=== PATIENT | female | born 1965 | race Caucasian/White ===

== ENCOUNTER → 2017-05-30 | Outpatient (CLI) | payer MEDICARE, OTHER ==
--- NOTE | 2017-05-30 20:05 | Diagnostic Imaging Report ---
PROCEDURE: US Carotid Duplex Bilateral. TECHNIQUE: Multiple real-time grayscale images were obtained over the carotid arteries in various projections bilaterally. Additional duplex Doppler and color Doppler images were also obtained. INDICATION: Coronary artery disease. FINDINGS: Grayscale images demonstrate minimal atherosclerotic plaque in the common and internal carotid arteries bilaterally. Color Doppler demonstrates patency of the internal, external and common carotid arteries on both sides. There is antegrade flow demonstrated in the vertebral arteries bilaterally. Peak systolic velocities in the right ICA are 86, 116 and 110 cm/s and on the left are 175, 107, and 119 cm/s. ICA/CCA ratios are up to 1.1 on the right side and up to 2 on the left. IMPRESSION: Despite the elevation of velocity in the proximal left internal carotid artery up to 175 cm/s, the degree of stenosis based on grayscale images appears to be less than 50%. Correlation with CTA is suggested to ensure lack of underlying significant stenosis. The estimated degree of stenosis in the right internal carotid artery is less than 50%. Dictated by: Dictated on workstation # [id number]
== END ==
LOC: RAD 12:00
PROVIDERS: ATTEND Pediatrics
DX: I25.10 Atherosclerotic heart disease of native coronary artery without angina pectoris (principal)
CPT/HCPCS: 93880

== ENCOUNTER → 2017-07-03 | Outpatient (CLI) | payer MEDICARE ==
[~2017-07-03] MED LIST: AMIT25TA9 PO; CATHETER FLUSH 10 ML SYR IV PRN; CLOP75TA28 PO; LISI-552 PO; MELO15TA39 PO; QUET25TA73 PO; REGADENOSON 0.4 MG/5 ML SYR (LEXISCAN) IV ONE; ROSU20TA28 PO; TRAM50TA2 PO
[2017-07-03 08:55] VITALS: BP 116/81
[2017-07-03 09:03] VITALS: BP 154/84
--- NOTE | 2017-07-04 10:07 | STRESS TEST ---
DATE OF SERVICE: 07/03/2017 LEXISCAN MYOVIEW STRESS TEST REPORT REFERRING PHYSICIAN: Dr. Anderson. Baseline heart rate is 65, baseline blood pressure 116/81. Baseline EKG is sinus rhythm with no ischemic changes. In summary, the patient was injected with 10.73 mCi of technetium-99 Myoview and the resting images were obtained. Then, the patient was injected with 0.4 mg of Lexiscan followed by 29.4 mCi of technetium-99 Myoview. Throughout the test, there were no EKG changes. The resting and stress images were reviewed and compared in the short axis, horizontal long axis, and vertical long axis views. Review of the images showed breast attenuation with reversible ischemia involving the mid to apical anterior wall and anterior septum, anterolateral wall. SSS is 9, SDS 1, TID value 1.0. On the gated images, the left ventricle appeared to be normal in size with normal contractility, calculated ejection fraction 62%. CONCLUSION: 1. The patient tolerated Lexiscan well. 2. Breast attenuation with reversible ischemia involving the mid to apical anterior wall, anterior septum and anterolateral wall. 3. Normal left ventricular size with normal contractility, calculated ejection fraction of 62%. Job ID: [id number] DocumentID: [id number] Dictated Date: 07/04/2017 07:16:30 Slide Fasteners Inspector Date: 07/04/2017 07:37:32 Dictated By: JAS CAMACHO MD
== END ==
LOC: CARD 06:37
PROVIDERS: ATTEND Internal Medicine Cardiovascular Disease
DX: I25.10 Atherosclerotic heart disease of native coronary artery without angina pectoris (principal); I73.9 Peripheral vascular disease, unspecified; I10 Essential (primary) hypertension; E78.2 Mixed hyperlipidemia
CPT/HCPCS: 78452; 93017

== ENCOUNTER → 2017-12-13 | Outpatient (CLI) | payer MEDICARE ==
[~2017-12-13] MED LIST changes: -CATHETER FLUSH 10 ML SYR IV PRN; -REGADENOSON 0.4 MG/5 ML SYR (LEXISCAN) IV ONE; -ROSU20TA28 PO; +ROSU20TA30 PO
--- NOTE | 2017-12-13 15:55 | Diagnostic Imaging Report ---
EXAMINATION: MRI thoracic spine without contrast. INDICATION: Back pain. COMPARISON: There are no prior studies available for comparison. FINDINGS: The parasagittal images show that the vertebral body heights and alignment to be generally within normal limits. There is desiccation of the discs at every level and mild generalized narrowing of the disc spaces. Also, at the T8-T9 level, there is a small disc bulge eccentric to the right. The disc compresses the right ventral aspect of the thecal sac and narrows the AP diameter to approximately 11 mm. There is no encroachment of the nerve root at this level. The remainder of the thoracic spine is unremarkable for spinal stenosis or nerve root encroachment. There is no abnormal signal arising from the osseous structures of the cord to suggest an acute abnormality. There is no evidence for a paraspinal mass. IMPRESSION: 1. There is a slight disc bulge to the right at T8-T9. This compresses the right ventral aspect of the thecal sac but does not produce spinal stenosis. There is no nerve root encroachment identified either. 2. The remainder of the thoracic spine is unremarkable for spinal stenosis or nerve root encroachment. 3. There is no sign of an acute bony abnormality or of a cord lesion. Dictated by: Dictated on workstation # [id number]
--- NOTE | 2017-12-13 16:02 | Diagnostic Imaging Report ---
PROCEDURE: MRI lumbar spine. TECHNIQUE: Multiplanar, multisequence MRI of the lumbar spine was performed without contrast. INDICATION: Low back pain. There are no prior studies available for comparison. FINDINGS: The T2 sagittal images show the vertebral body heights and alignment to be within normal limits. There is desiccation of the disc at every level and there is narrowing of the disc space at the L1-L2 level. At the L1-L2 level, there is a slight disc bulge eccentric to the left. The disc effaces the left ventral aspect of the thecal sac but does not produce spinal stenosis. There is no significant neuroforaminal narrowing either. The thecal sac is relatively generous. The remainder of the lumbar spine is also unremarkable for spinal stenosis or nerve root encroachment. There is no abnormal signal arising from the cord or the vertebral bodies to indicate an acute abnormality. There is no sign of a paraspinal mass. There are several parapelvic cysts associated with the right kidney and there are a few smaller cysts arising from the left kidney. IMPRESSION: 1. There is degenerative disc disease throughout the lumbar spine. The thecal sac, however, is relatively generous and there is no evidence for spinal stenosis or nerve root encroachment at any level. 2. There is no sign of an acute bony abnormality or of a cord lesion. Dictated by: Dictated on workstation # [id number]
== END ==
LOC: RAD 12:54
PROVIDERS: ATTEND Pediatrics
DX: M51.16 Intervertebral disc disorders with radiculopathy, lumbar region (principal); M51.24 Other intervertebral disc displacement, thoracic region
CPT/HCPCS: 72146; 72148

== ENCOUNTER 2018-01-29 13:44 | Outpatient (RCR) | payer MEDICARE ==
[~2018-01-29 13:44] MED LIST changes: -ROSU20TA30 PO; +ROSU20TA31 PO
== END 2018-03-19 10:55 | disposition home or self-care (01) ==
PROVIDERS: ATTEND Pediatrics
DX: M54.5 Low back pain (principal); M54.6 Pain in thoracic spine

== ENCOUNTER 2019-05-28 05:42 | Outpatient (CLI) | payer MEDICARE, MEDICAID ==
[~2019-05-28] VITALS: Ht 162 cm; Wt 83.6 kg
[~2019-05-28 05:42] MED LIST changes: -ROSU20TA31 PO; +ROSU20TA32 PO
== END 2019-05-28 14:53 | disposition home or self-care (01) ==
LOC: PREOP 05:42
PROVIDERS: ATTEND Surgery
DX: Z01.818 Encounter for other preprocedural examination (principal)

== ENCOUNTER 2019-06-03 11:57 | Day surgery (SDC) | payer MEDICARE, MEDICAID ==
[2019-06-03] VITALS (8 sets, daily range): BP systolic 126–155; BP diastolic 58–78
[~2019-06-03] VITALS: Ht 162 cm; Wt 83.6 kg
[~2019-06-03 11:57] MED LIST changes: +LACTATED RINGERS 1,000 ML IV ONE
[2019-06-03] MEDS ORDERED: LACTATED RINGERS 1,000 ML IV STA (12:04)
[2019-06-03] MEDS ORDERED: HURRICAINE EXT TUBE (BENZOCAINE) XX PRN (12:15)
--- NOTE | 2019-06-03 12:22 | Progress Note-Pre Operative ---
Pre-Operative Progress Note H&P Reviewed The H&P was reviewed, patient examined and no changes noted. Time Seen by Provider: 12:20 Date H&P Reviewed: Jun 03, 2019 Time H&P Reviewed: 12:18 Pre-Operative Diagnosis: Chronic Gastritis, Screening colonoscopy YOSELYN ELIZABETH DO Jun 03, 2019 12:22
[2019-06-03] MEDS ORDERED: MIDAZOLAM 2 MG/2 ML (VERSED) VIAL ONE (13:02)
[2019-06-03] MEDS ORDERED: PROPOFOL INJECTION 50 ML IV ONE (13:02)
--- NOTE | 2019-06-03 13:48 | Progress Note-Post Operative ---
Post-Operative Progess Note Surgeon (s)/Treating Machine Operator (s) Surgeon YOSELYN ELIZABETH DO Treating Machine Operator: none Pre-Operative Diagnosis Chronic Gastritis, Screening colonoscopy Post-Operative Diagnosis Gastritis Duodenitis Hiatal hernia colon polyp internal hemorrhoids Procedure & Operative Findings Date of Procedure 06/03/19 Procedure Performed/Findings EGD with bx Colon with snare Anesthesia Type IV sedation by COMMERCIAL PROJECT MANAGER Estimated Blood Loss Estimated blood loss (mL): scant Specimens/Packing Specimens Removed duodenal bx antral bx body of stomach bx GE jxn bx Transverse colon polyp YOSELYN ELIZABETH DO Jun 03, 2019 13:48
--- NOTE | 2019-06-03 13:50 | Endoscopy Discharge Instruct ---
Endo Procedure/Findings Findings 1.: Gastritis 2.: Polyp 3.: Internal Hemorrhoids Discharge Instructions - Activity: You might feel a little sleepy until tomorrow. This is due to the medicine you received to relax you. Until tomorrow, you should: NOT drive a car, operate machinery or power tools. NOT drink any alcoholic beverages. NOT make any important decisions or sign importortant papers. Do not return to work until tomorrow, unless otherwise instructed. Resume previous activities tomorrow. Diet: Start by taking liquids. If you tolerate liquids, advance to solid food. make an appointment in one week 1.: Colonscopy in 5 years, EGD in 1 year Notify Physician - If you experience excessive bleeding, unusual abdominal pain, fever, or chest pain, contact your doctor immediately. YOSELYN ELIZABETH DO Jun 03, 2019 13:50
--- NOTE | 2019-06-03 14:41 | Anesthesia-General Post-Op ---
MAC Patient Condition Mental Status/LOC: Same as Preop Cardiovascular: Satisfactory Nausea/Vomiting: Absent Respiratory: Satisfactory Pain: Controlled Complications: Absent Post Op Complications Complications None Follow Up Care/Instructions Patient Instructions None needed. Anesthesiology Discharge Order Discharge Order Patient is doing well, no complaints, stable vital signs, no apparent adverse anesthesia problems. No complications reported per nursing. KAROL CORTEZ CRNA Jun 03, 2019 14:41
--- NOTE | 2019-06-04 01:12 | OPERATIVE REPORT ---
DATE OF SERVICE: PREOPERATIVE DIAGNOSES: 1. Chronic gastritis. 2. Screening colonoscopy. POSTOPERATIVE DIAGNOSES: 1. Gastritis. 2. Duodenitis. 3. Hiatal hernia. 4. Colon polyp. 5. Internal hemorrhoids. PROCEDURES: 1. EGD with biopsy. 2. Colonoscopy with snare polypectomy. SURGEON: Zak Méndez DO. PHYSICS DEPARTMENT CHAIR: None. ANESTHESIA: IV sedation by the MEDIA RELATIONS MANAGER. SPECIMEN: Biopsy x2 from the duodenum, one biopsy from the antrum, one biopsy from the body of stomach, one biopsy from the GE junction and then a transverse colon polyp. BLOOD LOSS: Scant. FLUIDS: Per anesthesia. POSTOPERATIVE CONDITION: Stable. INDICATION FOR PROCEDURE: The patient is a 54-year-old female who has got some chronic gastritis and needed an EGD. She has also never had a colonoscopy, need one for screening. FINDINGS: The patient had what looked like gastritis and duodenitis. She also had a small hiatal hernia. In the colon, she had a transverse colon polyp and some internal hemorrhoids. PROCEDURE NOTE: After informed consent was obtained, the patient was brought to the endoscopy suite and placed in bed in left lateral decubitus position. She was administered IV sedation by the MEDIA RELATIONS MANAGER who then monitored her vitals the entire time, heart rate, blood pressure and pulse ox. Scope was inserted down the mouth through the esophagus into the stomach, pushed in the duodenum and the duodenal looked like there is duodenitis, may be some possible irritation or polyps, elected to do a biopsy, did 2 biopsies in the duodenum, pulled back into the antrum, did a biopsy here, also looked like there is some gastritis and then retroflexed the scope, saw a small hiatal hernia, did a biopsy of the body of stomach and then pulled the scope into the GE junction, looked like there was some creeping up of the Z line here and elected to do a biopsy here as well and suctioned this area out of the stomach and pulled the scope up the esophagus and out the mouth. Switched camera, switched gloves and went down below, started the colonoscopy. Pushed all the way to about 150 cm got into the cecum, took a picture of appendiceal orifice, noted the ileocecal valve and then slowly withdrew the scope insufflating to look circumferentially at the sainz. Startin in the cecum, up the ascending colon to the hepatic flexure, then down the transverse colon and in the transverse colon, saw small polyp, did a snare polypectomy of this. Continued to the splenic flexure, then down the descending colon into the sigmoid colon and finally down into the rectum, retroflexed in rectal vault, saw some small internal hemorrhoids, took a picture of this and removed the scope. The patient tolerated the procedure. She was recovered in endoscopy suite. Job ID: [id number] DocumentID: [id number] Dictated Date: 06/03/2019 16:56:49 Stripping Cutter And Winder Date: 06/04/2019 01:12:26 Dictated By: DO ANIA ATKINSON
== END 2019-06-03 14:40 | disposition home or self-care (01) ==
LOC: ENDO 11:57
PROVIDERS: ATTEND Surgery
DX: Z12.11 Encounter for screening for malignant neoplasm of colon (principal); D12.3 Benign neoplasm of transverse colon; K29.50 Unspecified chronic gastritis without bleeding; K20.9 Esophagitis, unspecified; K29.80 Duodenitis without bleeding; K64.8 Other hemorrhoids; K44.9 Diaphragmatic hernia without obstruction or gangrene; I25.10 Atherosclerotic heart disease of native coronary artery without angina pectoris; I70.203 Unspecified atherosclerosis of native arteries of extremities, bilateral legs; J44.9 Chronic obstructive pulmonary disease, unspecified; K21.9 Gastro-esophageal reflux disease without esophagitis; I10 Essential (primary) hypertension; I77.1 Stricture of artery; E78.5 Hyperlipidemia, unspecified; E66.9 Obesity, unspecified; F17.210 Nicotine dependence, cigarettes, uncomplicated; F32.9 Major depressive disorder, single episode, unspecified; Z68.39 Body mass index [BMI] 39.0-39.9, adult; Z98.51 Tubal ligation status; Z82.3 Family history of stroke; Z82.49 Family history of ischemic heart disease and other diseases of the circulatory system; Z80.9 Family history of malignant neoplasm, unspecified

== ENCOUNTER → 2019-07-09 | Outpatient (CLI) | payer MEDICARE, MEDICAID ==
[~2019-07-09] MED LIST changes: -LACTATED RINGERS 1,000 ML IV ONE
[2019-07-09 12:31] LABS: ABG BASE EXCESS -0.1 MMOL/L (-2.5-2.5); ABG OXYGEN SATURATION 98 % (94-100); ABG PCO2 42 MMHG (35-45); ABG PH 7.38 (7.37-7.43); ABG PO2 81 MMHG (79-93); ABG TCO2 25.8 MMOL/L (21.0-31.0); ALLENS TEST POSITIVE; PATIENT TEMP 36.2; VENTILATOR NO
--- NOTE | 2019-07-09 12:35 | Diagnostic Imaging Report ---
EXAMINATION: Chest, two views. HISTORY: Cough. FINDINGS: Comparison is 07/05/2017. There is mild atelectasis in the left lung base. No pleural effusion or pneumothorax. No edema or pneumonia. Heart size is normal. IMPRESSION: 1. Mild atelectasis in the left lung base. Dictated by: Dictated on workstation # [id number]
== END ==
LOC: RT 11:29
PROVIDERS: ATTEND Nurse Practitioner Family
DX: J44.9 Chronic obstructive pulmonary disease, unspecified (principal); J98.11 Atelectasis; G47.50 Parasomnia, unspecified; R06.83 Snoring
CPT/HCPCS: 36600; 71046; 82805

== ENCOUNTER → 2019-08-14 | Outpatient (CLI) | payer MEDICARE, MEDICAID ==
[~2019-08-14] MED LIST changes: +RT-ALBUTEROL SULF 2.5 MG/3 ML PRE-MIX VIAL INH ONE
== END ==
LOC: RT 08:09
PROVIDERS: ATTEND Nurse Practitioner Family
DX: J44.9 Chronic obstructive pulmonary disease, unspecified (principal); G47.50 Parasomnia, unspecified
CPT/HCPCS: 94060; 94726; 94729

== ENCOUNTER → 2019-08-30 | Outpatient (CLI) | payer MEDICARE, MEDICAID ==
[~2019-08-30] MED LIST changes: +CATHETER FLUSH 10 ML SYR IV PRN; +HOLD METFORMIN - RECEIVED CONTRAST 20 ML VIAL IV SCH; +IOHEXOL 350 MG/ML 100 ML (OMNIPAQUE 350) VIAL IV ONE; +NS 100 ML (IVPB) BAG IV ONE; -RT-ALBUTEROL SULF 2.5 MG/3 ML PRE-MIX VIAL INH ONE
[2019-08-30 12:13] LABS: BUN/CREATININE RATIO 11; CREATININE SERUM 0.75 MG/DL (0.60-1.30); GFR ESTIMATED > 60
--- NOTE | 2019-08-30 13:18 | Diagnostic Imaging Report ---
EXAMINATION: CT Chest with intravenous contrast. TECHNIQUE: Multiple contiguous axial images were obtained through the chest after the uneventful administration of intravenous contrast. All CT scans use one or more of the following dose optimizing techniques: automated exposure control, MA and/or KvP adjustment based on a patient size and exam type, or iterative reconstruction. HISTORY: COPD, dyspnea. COMPARISON: None available. FINDINGS: The lungs are clear without edema or pneumonia. No pleural effusion or pneumothorax. No suspicious nodules. Lungs are mildly emphysematous. There is mild atelectasis in the left lung base. Heart size is normal. Incidental note is made of fat deposition within the moderator band of the right ventricle. No pericardial effusion. Aorta is normal in caliber. There is no axillary or supraclavicular lymphadenopathy. There is no mediastinal lymphadenopathy. Limited views of the upper abdomen are unremarkable. There are no suspicious osseous lesions. IMPRESSION: 1. No acute abnormality in the chest. Dictated by: Dictated on workstation # [id number]
== END ==
LOC: RAD 11:30
PROVIDERS: ATTEND Nurse Practitioner Family
DX: J44.9 Chronic obstructive pulmonary disease, unspecified (principal); J98.4 Other disorders of lung; R91.8 Other nonspecific abnormal finding of lung field
CPT/HCPCS: 36415; 71260; 82565; 84520

== ENCOUNTER → 2019-09-16 | Outpatient (CLI) | payer MEDICARE, MEDICAID ==
[~2019-09-16] VITALS: Ht 162 cm; Wt 85.0 kg
[~2019-09-16] MED LIST changes: +ACET-2267 PO; +BUDE10.2 IH; -CATHETER FLUSH 10 ML SYR IV PRN; -HOLD METFORMIN - RECEIVED CONTRAST 20 ML VIAL IV SCH; -IOHEXOL 350 MG/ML 100 ML (OMNIPAQUE 350) VIAL IV ONE; +MELO7.5T46 PO; -NS 100 ML (IVPB) BAG IV ONE; +QUET100T PO; +REGADENOSON 0.4 MG/5 ML SYR (LEXISCAN) IV ONE; +RT-ALBUINH IH; -TRAM50TA2 PO; +TRM50T PO
[2019-09-16] MEDS: CATHETER FLUSH 10 ML SYR IV PRN ×2 (10:54→11:56)
[2019-09-16 11:53] VITALS: BP 158/71
--- NOTE | 2019-09-17 20:01 | STRESS TEST ---
DATE OF SERVICE: 09/16/2019 LEXISCAN MYOVIEW STRESS TEST REPORT REFERRING PHYSICIAN: Dr. Washington. Baseline heart rate is 63. Baseline blood pressure 161/106. Baseline EKG is sinus rhythm with no ischemic changes. In summary, the patient was injected with 10.43 mCi of technetium-99 Myoview and the resting images were obtained. Then, the patient received 0.4 mg of Lexiscan followed by 30.6 mCi of technetium-99 Myoview. Throughout the test, there were no EKG changes. The resting and stress images were reviewed and compared in the short axis, horizontal long axis, and vertical long axis views. Review of the images showed mild decreased uptake involving the basal to mid anterior septum with no significant ischemia. SSS is 6, SDS 2, TID value 1.0. On the gated images, the left ventricle appeared to be normal size with normal contractility. Calculated ejection fraction 71%. CONCLUSION: 1. The patient tolerated Lexiscan well. 2. Breast attenuation with typical female pattern. No significant ischemia or infarction was seen. 3. Normal left ventricular size with normal contractility. Calculated ejection fraction is 71%. Job ID: [id number] DocumentID: [id number] Dictated Date: 09/17/2019 15:41:02 Adult School Counselor Date: 09/17/2019 20:01:00 Dictated By: JAS WASHINGTON MD
== END ==
LOC: CARD 09:58
PROVIDERS: ATTEND Internal Medicine Cardiovascular Disease
DX: I65.29 Occlusion and stenosis of unspecified carotid artery (principal); I25.10 Atherosclerotic heart disease of native coronary artery without angina pectoris; I10 Essential (primary) hypertension; E78.5 Hyperlipidemia, unspecified; I73.9 Peripheral vascular disease, unspecified
CPT/HCPCS: 78452; 93017

== ENCOUNTER 2020-07-22 16:37 | Observation (INO) | payer MEDICARE, MEDICAID ==
[~2020-07-22] VITALS: Ht 162.5 cm; Wt 85.4 kg
[~2020-07-22 16:37] MED LIST changes: +ASPI-1238 PO; +ATOR80TA76 PO; +LISI-556 PO; +PANT40SU PO; -REGADENOSON 0.4 MG/5 ML SYR (LEXISCAN) IV ONE
--- NOTE | 2020-07-22 16:37 | NUR ---
PATIENT WILL KEEP UPDATED.
[2020-07-22] MEDS ORDERED: ADENOSINE 6 MG/2 ML (ADENOCARD) VIAL IV ONE ×3 (16:42→17:30)
--- NOTE | 2020-07-22 16:50 | NUR ---
CONVERTED TO NSR WITH 90'S
--- NOTE | 2020-07-22 16:55 | ED Cardiac General ---
History of Present Illness General Chief Complaint: Chest Pain Stated Complaint: CHEST PAIN/HEART RACING/HEADACHE Source: patient Exam Limitations: no limitations History of Present Illness Date Seen by Provider: Jul 22, 2020 Time Seen by Provider: 16:52 Initial Comments To ER with reports of chest pain, tachycardia and headache that started at noon today while at rest. She has had a few episodes like this in the past they resolved on their own. She does have a history of mild coronary artery disease without stenting. She has COPD. She does smoke cigarettes. Is not diabetic. Timing/Duration: 1-2 days Severity: moderate Location: central Activities at Onset: none NTG SL DRIFT MINER: No ASA po DRIFT MINER: No Allergies and Home Medications Allergies Coded Allergies: No Known Drug Allergies (Unverified , 05/28/19) Home Medications Acetaminophen 500 Mg Tablet, 1,000-1,500 MG PO Q8H PRN for PAIN-MILD (1-4), (Reported) Albuterol Sulfate 1 Puff Puff, 2 PUFF IH Q4H PRN for WHEEZING, (Reported) 1 PUFF = 90 MCG Aspirin 81 Mg Tablet.dr, 81 MG PO DAILY Prescribed by: JAS CAMACHO on 09/21/19 1038 Atorvastatin Calcium 80 Mg Tablet, 80 MG PO HS Prescribed by: JAS CAMACHO on 09/21/19 1038 Clopidogrel Bisulfate 75 Mg Tablet, 75 MG PO DAILY Prescribed by: JAS CAMACHO on 09/21/19 1038 Lisinopril 5 Mg Tablet, 5 MG PO DAILY Prescribed by: JAS CAMACHO on 09/21/19 1038 Pantoprazole Sodium 40 Mg Granpkt.dr, 40 MG PO DAILY Prescribed by: JAS CAMACHO on 09/21/19 1038 Quetiapine Fumarate 100 Mg Tablet, 100 MG PO 1900, (Reported) Patient Home Medication List Home Medication List Reviewed: Yes Review of Systems Review of Systems Constitutional: see HPI; No chills, No fever EENTM: No Symptoms Reported Respiratory: No Symptoms Reported Cardiovascular: See HPI, Chest Pain, Palpitations Gastrointestinal: No Symptoms Reported Genitourinary: No Symptoms Reported Musculoskeletal: no symptoms reported Skin: no symptoms reported Psychiatric/Neurological: No Symptoms Reported Endocrine: No Symptoms Reported Hematologic/Lymphatic: No Symptoms Reported Past Vgoyftx-Alqulq-Ujxqmc Hx Patient Social History Type Used: Cigarettes 2nd Hand Smoke Exposure: Yes Recent Foreign Travel: No Contact w/Someone Who Travel: No Recent Hopitalizations: No Immunizations Up To Date Tetanus Booster (TDap): More than 5yrs Seasonal Allergies Seasonal Allergies: No Past Medical History Surgeries: Yes (removed an extra HEART valve at age 2, NECK) Section, Hysterectomy, Tubal Ligation Respiratory: Yes Emphysema Cardiac: Yes Coronary Artery Disease, High Cholesterol, Hypertension, Palpitations Neurological: No Sexually Transmitted Disease: No HIV/AIDS: No Genitourinary: No Gastrointestinal: Yes Hiatal Hernia Musculoskeletal: Yes Chronic Back Pain Endocrine: No (WATCHING BLOOD SUGARS-SOMETIMES RUNS HIGH) HEENT: Yes (READING GLASSES, DENTURES) Loss of Vision: Denies Hearing Impairment: Denies Cancer: No Psychosocial: Yes Depression Integumentary: Yes (BLISTERS ON HANDS AND FEET) Blood Disorders: No Adverse Reaction/Blood Tranf: No Physical Exam Vital Signs Vital Signs - First Documented 07/22/20 16:37 Temp 36.1 Pulse 186 Resp 18 B/P (MAP) 141/90 (107) Pulse Ox 96 O2 Delivery Room Air Capillary Refill : Height, Weight, BMI Height: 5'4.00" Weight: 189lbs. 0.0oz. 85.525664bd; 35.55 BMI Method: General Appearance: No Apparent Distress, WD/WN HEENT: PERRL/EOMI, TMs Normal Respiratory: No Accessory Muscle Use, No Respiratory Distress, Decreased Breath Sounds, Wheezing (Yes) Cardiovascular: Tachycardia (Narrow complex rate of 186) Gastrointestinal: Normal Bowel Sounds, Non Tender, Soft Neurologic/Psychiatric: Alert, Oriented x3 Skin: Normal Color, Warm/Dry Other comments Alert and oriented mentating well. Heart rate regular narrow complex rate of 186. Blood pressure was 140/90. GCS 15. She was attached cardiac monitors, Valsalva maneuver was ineffective at converting to sinus rhythm. Then gave 12 mg of adenosine with resultant conversion to a sinus rhythm rate of about 100. Progress/Results/Core Measures Results/Orders Lab Results Laboratory Tests Test 07/22/20 16:45 Range/Units White Blood Count 13.6 H 4.3-11.0 10^3/uL Red Blood Count 4.30 3.80-5.11 10^6/uL Hemoglobin 14.8 11.5-16.0 g/dL Hematocrit 44 35-52 % Mean Corpuscular Volume 102 H 80-99 fL Mean Corpuscular Hemoglobin 34 25-34 pg Mean Corpuscular Hemoglobin Concent 34 32-36 g/dL Red Cell Distribution Width 14.0 10.0-14.5 % Platelet Count 244 130-400 10^3/uL Mean Platelet Volume 10.5 9.0-12.2 fL Immature Granulocyte % (Auto) 0 % Neutrophils (%) (Auto) 71 42-75 % Lymphocytes (%) (Auto) 23 12-44 % Monocytes (%) (Auto) 4 0-12 % Eosinophils (%) (Auto) 1 0-10 % Basophils (%) (Auto) 0 0-10 % Neutrophils # (Auto) 9.6 H 1.8-7.8 10^3/uL Lymphocytes # (Auto) 3.2 1.0-4.0 10^3/uL Monocytes # (Auto) 0.5 0.0-1.0 10^3/uL Eosinophils # (Auto) 0.2 0.0-0.3 10^3/uL Basophils # (Auto) 0.0 0.0-0.1 10^3/uL Immature Granulocyte # (Auto) 0.1 0.0-0.1 10^3/uL D-Dimer 0.67 H 0.00-0.49 UG/ML Sodium Level 141 135-145 MMOL/L Potassium Level 3.9 3.6-5.0 MMOL/L Chloride Level 104 98-107 MMOL/L Carbon Dioxide Level 24 21-32 MMOL/L Anion Gap 13 5-14 MMOL/L Blood Urea Nitrogen 9 7-18 MG/DL Creatinine 0.84 0.60-1.30 MG/DL Estimat Glomerular Filtration Rate > 60 BUN/Creatinine Ratio 11 Glucose Level 147 H 70-105 MG/DL Calcium Level 9.4 8.5-10.1 MG/DL Corrected Calcium 9.2 8.5-10.1 MG/DL Magnesium Level 2.2 1.6-2.4 MG/DL Total Bilirubin 0.3 0.1-1.0 MG/DL Aspartate Amino Transf (AST/SGOT) 10 5-34 U/L Alanine Aminotransferase (ALT/SGPT) 10 0-55 U/L Alkaline Phosphatase 123 40-136 U/L Troponin I < 0.028 <0.028 NG/ML B-Type Natriuretic Peptide 76.8 <100.0 PG/ML Total Protein 7.5 6.4-8.2 GM/DL Albumin 4.2 3.2-4.5 GM/DL Thyroid Stimulating Hormone (TSH) 1.19 0.35-4.94 UIU/ML My Orders Orders - ERNESTINE JOSEPH APRN Ns Iv 1000 Ml (Sodium Chloride 0.9%) (07/22/20 17:00) Albuterol Inhaler (Ventolin Hfa) (07/22/20 18:00) Cbc With Automated Diff (07/22/20 16:50) Comprehensive Metabolic Panel (07/22/20 16:50) Troponin I (07/22/20 16:50) Ekg Tracing (07/22/20 16:50) Magnesium (07/22/20 16:50) Chest 1 View, Ap/Pa Only (07/22/20 16:50) BNP (07/22/20 16:50) Adenosine Injection (Adenocard Injection (07/22/20 17:00) Metoprolol Tartrate Injection (Lopressor (07/22/20 17:15) Metoprolol Tartrate Injection (Lopressor (07/22/20 17:11) Fibrin Degradation Products (07/22/20 17:20) Thyroid Stimulating Hormone (07/22/20 17:20) Adenosine Injection (Adenocard Injection (07/22/20 17:30) Ct Angio Chest W (07/22/20 17:50) Metoprolol Tartrate Injection (Lopressor (07/22/20 18:00) Iohexol Injection (Omnipaque 350 Mg/Ml 1 (07/22/20 18:15) Received Contrast (Hold Metformin- Contr (07/22/20 18:15) Ns (Ivpb) (Sodium Chloride 0.9% Ivpb Bag (07/22/20 18:15) Medications Given in ED Current Medications Medications Dose Ordered Sig/Evaristo Route Start Time Stop Time Status Last Admin Dose Admin Adenosine 6 mg ONCE ONCE IV 07/22/20 17:30 07/22/20 17:31 DC 07/22/20 17:16 6 MG Adenosine 12 mg ONCE ONCE IV 07/22/20 17:00 07/22/20 17:01 DC 07/22/20 16:47 12 MG Iohexol 100 ml ONCE ONCE IV 07/22/20 18:15 07/22/20 18:16 DC 07/22/20 18:21 74 ML Metoprolol Tartrate 5 mg ONCE ONCE IV 07/22/20 17:15 07/22/20 17:16 DC 07/22/20 17:19 5 MG Metoprolol Tartrate 5 mg ONCE ONCE IV 07/22/20 18:00 07/22/20 18:01 DC 07/22/20 18:07 5 MG Sodium Chloride 100 ml ONCE ONCE IV 07/22/20 18:15 07/22/20 18:16 DC 07/22/20 18:21 80 ML Vital Signs/I&O 07/22/20 07/22/20 07/22/20 16:37 17:38 18:30 Temp 36.1 Pulse 186 80 82 Resp 18 18 B/P (MAP) 141/90 (107) 120/70 121/48 Pulse Ox 96 100 98 O2 Delivery Room Air Room Air Room Air Diagnostic Imaging Diagonstic Imaging: CT Comments NAME: DANIELLECHARMAINE Luis [facility] REC#: [id number] PT STATUS: REG ER : 1965 PHYSICIAN: ERNESTINE JOSEPH PURCHASING CONTRACTING CLERK ADMIT DATE: 07/22/20/ER Draft Date of Exam:07/22/20 CT ANGIO CHEST W PROCEDURE: CT angiography of the chest with contrast. TECHNIQUE: Multiple contiguous axial images were obtained through the chest after uneventful bolus administration of intravenous contrast. 3D reconstructed CTA MIP acquisitions were also performed. Auto Exposure Controls were utilized during the CT exam to meet ALARA standards for radiation dose reduction. INDICATION: Chest pain and cough. Tachycardia. Short of air The lungs are clear. There is no effusion or pneumothorax. There is no mediastinal mass or hemorrhage. There is no aortic aneurysm or dissection. There is no pulmonary embolus. IMPRESSION: No acute abnormality is seen. Dictated on workstation # [id number] Dict: 07/22/20 1828 Trans: 07/22/20 1833 CVB [id number] Interpreted by: PARUL CARRASCO MD Electronically signed by: Departure Communication (Admissions) [id number] did develop a recurrence of SVT with rate narrow complex of 170s. BP st able. Given 6mg adenosine, converted once again to sinus rate of 90. Then was given 5mg lopressor IV. Impression Primary Impression: Paroxysmal supraventricular tachycardia Disposition: ADMITTED INPATIENT Condition: Stable Departure-Patient Inst. Referrals: NO,LOCAL PHYSICIAN (PCP/Family) Primary Care Physician ERNESTINE JOSEPH APRN Jul 22, 2020 16:55
[2020-07-22 16:56] LABS: BASOPHILS % (AUTO) 0 % (0-10); EOSINOPHILS # (AUTO) 0.2 10^3/uL (0.0-0.3); EOSINOPHILS % (AUTO) 1 % (0-10); HEMATOCRIT 44 % (35-52); HEMOGLOBIN 14.8 g/dL (11.5-16.0); LYMPHOCYTES # (AUTO) 3.2 10^3/uL (1.0-4.0); LYMPHOCYTES % (AUTO) 23 % (12-44); MEAN CORPUSCULAR HEMOGLOBIN 34 pg (25-34); MEAN CORPUSCULAR HGB CONC 34 g/dL (32-36); MEAN CORPUSCULAR VOLUME 102 fL (80-99); MEAN PLATELET VOLUME 10.5 fL (9.0-12.2); MONOCYTES # (AUTO) 0.5 10^3/uL (0.0-1.0); MONOCYTES % (AUTO) 4 % (0-12); NEUTROPHILS # (AUTO) 9.6 10^3/uL (1.8-7.8); NEUTROPHILS % (AUTO) 71 % (42-75); PLATELET COUNT 244 10^3/uL (130-400); WHITE BLOOD COUNT 13.6 10^3/uL (4.3-11.0)
[2020-07-22] MEDS ORDERED: NS IV 1000 ML 1,000 ML IV SCH (17:00)
[2020-07-22 17:03] LABS: ALBUMIN 4.2 GM/DL (3.2-4.5); CHLORIDE 104 MMOL/L (98-107); POTASSIUM 3.9 MMOL/L (3.6-5.0); SODIUM 141 MMOL/L (135-145)
[2020-07-22 17:04] LABS: CALCIUM 9.4 MG/DL (8.5-10.1)
[2020-07-22 17:05] LABS: GLUCOSE 147 MG/DL (70-105)
[2020-07-22 17:06] LABS: TOTAL PROTEIN 7.5 GM/DL (6.4-8.2)
[2020-07-22 17:07] LABS: BILIRUBIN,TOTAL 0.3 MG/DL (0.1-1.0); CARBON DIOXIDE 24 MMOL/L (21-32)
[2020-07-22 17:09] LABS: ALKALINE PHOSPHATASE 123 U/L (40-136); CREATININE SERUM 0.84 MG/DL (0.60-1.30); GFR ESTIMATED > 60
[2020-07-22 17:10] LABS: BUN/CREATININE RATIO 11
[2020-07-22] MEDS ORDERED: meTOprolol 5 MG/5 ML (LOPRESSOR) VIAL ONE (17:11)
--- NOTE | 2020-07-22 17:11 | NUR ---
PCXR DONE MONITOR SHOWS HR OF 160 P JOSEPH NOTIFIED.
[2020-07-22 17:12] LABS: ALANINE AMINOTRANSFERASE 10 U/L (0-55); MAGNESIUM 2.2 MG/DL (1.6-2.4)
--- NOTE | 2020-07-22 17:12 | NUR ---
RATE BACK TO NSR HR 98
[2020-07-22] MEDS ORDERED: meTOprolol 5 MG/5 ML (LOPRESSOR) VIAL IV ONE ×2 (17:15→18:00)
--- NOTE | 2020-07-22 17:16 | NUR ---
MONITOR SHOW SVT RATE 160 ADENSION GIVEN
--- NOTE | 2020-07-22 17:17 | NUR ---
HR RATE 106 NSR
--- NOTE | 2020-07-22 17:25 | Diagnostic Imaging Report ---
INDICATION: Chest pain, tachycardia Upright chest shows normal heart size and vascularity. The lungs are clear. There is no effusion or pneumothorax. IMPRESSION: No acute abnormality is seen with no significant change from 09/18/2019. Dictated by: Dictated on workstation # [id number]
[2020-07-22] MEDS ORDERED: RT-ALBUTEROL INHALER HFA (VENTOLIN HFA) 18 GM IH SCH (18:00)
--- NOTE | 2020-07-22 18:09 | NUR ---
HR RATE 140 LOPRESSOR ORDERED.
[2020-07-22] MEDS ORDERED: HOLD METFORMIN - RECEIVED CONTRAST 20 ML VIAL IV SCH (18:15)
[2020-07-22] MEDS ORDERED: IOHEXOL 350 MG/ML 100 ML (OMNIPAQUE 350) VIAL IV ONE (18:15)
[2020-07-22] MEDS ORDERED: NS 100 ML (IVPB) BAG IV ONE (18:15)
--- NOTE | 2020-07-22 18:33 | Diagnostic Imaging Report ---
PROCEDURE: CT angiography of the chest with contrast. TECHNIQUE: Multiple contiguous axial images were obtained through the chest after uneventful bolus administration of intravenous contrast. 3D reconstructed CTA MIP acquisitions were also performed. Auto Exposure Controls were utilized during the CT exam to meet ALARA standards for radiation dose reduction. INDICATION: Chest pain and cough. Tachycardia. Short of air The lungs are clear. There is no effusion or pneumothorax. There is no mediastinal mass or hemorrhage. There is no aortic aneurysm or dissection. There is no pulmonary embolus. IMPRESSION: No acute abnormality is seen. Dictated by: Dictated on workstation # [id number]
--- NOTE | 2020-07-22 18:37 | NUR ---
CT REPORT UPDATE GIVEN TO JONATHAN LEACH
--- NOTE | 2020-07-22 18:44 | NUR ---
PICK SHEET WITH FAMILY CONTACT INFORMATION SENT TO FLOOR WITH PATIENT.
--- NOTE | 2020-07-22 18:52 | NUR ---
CHARMAINE SANTOS admitted to room 507-1, with an admitting diagnosis of SVT, on 07/22/20 from [place] via wheelchair, accompanied by staff.CHARMAINE SANTOS introduced to surroundings, call light, bed controls, phone, TV, temperature control, lights, meal times, smoking policy, visitor policy, side rail policy, bathrooms and showers. Patient Rights given to patient in the handbook. CHARMAINE SANTOS verbalizes understanding that [facility] is not responsible for the loss or damage to any personal effects or valuables that are kept in the patients posession during their hospitalization. The following Patient Care Plans were discussed with the pt: Discharge Planning. CHARMAINE SANTOS verbalizes understanding of Interdisciplinary Patient Education. Patient and/or family were informed about the Rapid Response Team and its purpose.
[2020-07-22 19:10] VITALS: BP 98/58
[2020-07-22 19:15] VITALS: BP 98/58
[2020-07-22] MEDS: LACTATED RINGERS 1,000 ML IV SCH (20:31)
[2020-07-23] VITALS: BP 119/74
[2020-07-23 04:00] VITALS: BP 108/72
[2020-07-23] MEDS: LACTATED RINGERS 1,000 ML IV SCH (04:14)
[2020-07-23 08:15] VITALS: BP 130/62
--- NOTE | 2020-07-23 08:59 | History & Physical ---
HPI History of Present Illness: 55 yo came to ER due to palpitations starting around noon. Had chest tightness along with it, no other symptoms. She notes having episodes like this in the past but not this long. Reports history of 40-50% blockage seen in the past in her heart but no stents so far. Sees Dr. Washington. Source: patient Date seen by provider: Jul 23, 2020 Time Seen by Provider: 09:00 Attending Physician Sohan Morataya MD PCP Haley Claudio MD Consult Date of Admission Jul 22, 2020 at 18:38 Home Medications Home Medications Reviewed patient Home Medication Reconciliation performed by pharmacy medication reconciliations rehabilitation technician and/or nursing. Patients Allergies have been reviewed. Allergies Coded Allergies: No Known Drug Allergies (Unverified , 05/28/19) WTU-Ylzxak-Kprrus Hx Patient Social History Alcohol Use: Denies Use Recreational Drug Use: No Smoking Status: Current Everyday Smoker Type Used: Cigarettes 2nd Hand Smoke Exposure: Yes Recent Foreign Travel: No Contact w/other who traveled: No Recent Hopitalizations: No Recent Infectious Disease Expo: No Immunizations Up To Date Tetanus Booster (TDap): More than 5yrs Past Medical History PMHx: CAD COPD PAD SurgHx: Femoral artery stenting on left Cardiac surgery as a child, "to take out extra valve" Tonsillectomy Cervical discectomy Family Medical History Significant Family History: Cancer (mother of melanoma), CVA (father), Lung Disease Review of Systems ([facility]) Constitutional: No fever EENTM: No nose congestion, No throat pain Respiratory: cough (chronic COPD, has some clear phlegm), short of breath (intermittent with COPD and activity) Cardiovascular: see HPI Gastrointestinal: No abdominal pain, No constipation, No diarrhea, No nausea, No vomiting Genitourinary: No dysuria Musculoskeletal: back pain; No joint pain Skin: No rash Reviewed Test Results Reviewed Test Results Lab Laboratory Tests Test 07/22/20 16:45 07/23/20 00:25 07/23/20 06:04 Range/Units White Blood Count 13.6 H 4.3-11.0 10^3/uL Red Blood Count 4.30 3.80-5.11 10^6/uL Hemoglobin 14.8 11.5-16.0 g/dL Hematocrit 44 35-52 % Mean Corpuscular Volume 102 H 80-99 fL Mean Corpuscular Hemoglobin 34 25-34 pg Mean Corpuscular Hemoglobin Concent 34 32-36 g/dL Red Cell Distribution Width 14.0 10.0-14.5 % Platelet Count 244 130-400 10^3/uL Mean Platelet Volume 10.5 9.0-12.2 fL Immature Granulocyte % (Auto) 0 % Neutrophils (%) (Auto) 71 42-75 % Lymphocytes (%) (Auto) 23 12-44 % Monocytes (%) (Auto) 4 0-12 % Eosinophils (%) (Auto) 1 0-10 % Basophils (%) (Auto) 0 0-10 % Neutrophils # (Auto) 9.6 H 1.8-7.8 10^3/uL Lymphocytes # (Auto) 3.2 1.0-4.0 10^3/uL Monocytes # (Auto) 0.5 0.0-1.0 10^3/uL Eosinophils # (Auto) 0.2 0.0-0.3 10^3/uL Basophils # (Auto) 0.0 0.0-0.1 10^3/uL Immature Granulocyte # (Auto) 0.1 0.0-0.1 10^3/uL D-Dimer 0.67 H 0.00-0.49 UG/ML Sodium Level 141 135-145 MMOL/L Potassium Level 3.9 3.6-5.0 MMOL/L Chloride Level 104 98-107 MMOL/L Carbon Dioxide Level 24 21-32 MMOL/L Anion Gap 13 5-14 MMOL/L Blood Urea Nitrogen 9 7-18 MG/DL Creatinine 0.84 0.60-1.30 MG/DL Estimat Glomerular Filtration Rate > 60 BUN/Creatinine Ratio 11 Glucose Level 147 H 70-105 MG/DL Calcium Level 9.4 8.5-10.1 MG/DL Corrected Calcium 9.2 8.5-10.1 MG/DL Magnesium Level 2.2 1.6-2.4 MG/DL Total Bilirubin 0.3 0.1-1.0 MG/DL Aspartate Amino Transf (AST/SGOT) 10 5-34 U/L Alanine Aminotransferase (ALT/SGPT) 10 0-55 U/L Alkaline Phosphatase 123 40-136 U/L Troponin I < 0.028 < 0.028 < 0.028 <0.028 NG/ML B-Type Natriuretic Peptide 76.8 <100.0 PG/ML Total Protein 7.5 6.4-8.2 GM/DL Albumin 4.2 3.2-4.5 GM/DL Thyroid Stimulating Hormone (TSH) 1.19 0.35-4.94 UIU/ML Physical Exam-([facility]) Physical Exam Vital Signs Capillary Refill : Less Than 3 Seconds General Appearance: WD/WN, no apparent distress Respiratory: no respiratory distress, decreased breath sounds, rhonchi Cardiovascular: regular rate, rhythm, no murmur Peripheral Pulses: 2+ Dorsalis Pedis (R), 2+ Left Dors-Pedis (L) Gastrointestinal: normal bowel sounds, non tender, soft Extremities: No pedal edema Neurologic/Psychiatric: alert, normal mood/affect Skin: normal color, warm/dry Assessment/Plan Assessment/Plan Admission Status: Observation (1) Paroxysmal supraventricular tachycardia Status: Acute Assessment & Plan: Resolved after two doses of adenosine in ER. Cardiology consulted, appreciate recommendations. (2) PVD (peripheral vascular disease) Status: Chronic Clinical Quality Measures AMI/AHF: ASA po Prior to arrival: No DVT/VTE Risk/Contraindication: Risk Factor Score Per Nursin RFS Level Per Nursing on Admit: 2=Moderate SOHAN MORATAYA MD Jul 23, 2020 08:58
[2020-07-23] MEDS ORDERED: ASPIRIN 81 MG CHEW (CHILDREN'S ASA) PO SCH (09:00)
[2020-07-23] MEDS ORDERED: meTOproloL SUCCINATE 50 MG (TOPROL XL) TAB PO SCH (09:00)
--- NOTE | 2020-07-23 09:01 | Consultation-Cardiology ---
HPI-Cardiology Cardiology Consultation Date of Consultation 07/23/20 Date of Admission Time Seen by Provider: 08:59 Indication: palpitation HPI 55-year-old lady with history of coronary artery disease, peripheral arterial disease, had history of palpitation with SVTs, reporting history of heart rate 160-170. Started yesterday afternoon to have palpitation was rapid heart rate came into the emergency room and noted to be narrow complex tachycardia responded to adenosine then had another episode and appropriate response to adenosine again and I gave her 5 mg of IV Lopressor which helped keeping her heart rate controlled and since then she has been doing well. This morning she is feeling well. Denied any chest pain, no shortness of breath. No palpitatio n. No other arrhythmia noted on telemetry Home Medications & Allergies Allergies: Coded Allergies: No Known Drug Allergies (Unverified , 05/28/19) Home Medication List Reviewed: Yes [id number]-[id number]-Hcvxgg Hx Patient Social History Alcohol Use: Denies Use Recreational Drug Use: No Smoking Status: Current Everyday Smoker Type Used: Cigarettes 2nd Hand Smoke Exposure: Yes Recent Foreign Travel: No Recent Infectious Disease Expo: No Recent Hopitalizations: No Immunizations Up To Date Tetanus Booster (TDap): More than 5yrs Past Medical History Discussed below Review of Systems-General Review of Systems Constitutional: see HPI; No chills, No fever EENTM: see HPI, no symptoms reported Respiratory: no symptoms reported, see HPI Cardiovascular: see HPI; No chest pain, No edema, No Hx of Intervention; palpitations; No syncope, No vascular heart diseas, No other Gastrointestinal: no symptoms reported, see HPI Genitourinary: no symptoms reported, see HPI Musculoskeletal: no symptoms reported Skin: no symptoms reported Psychiatric/Neurological: No Symptoms Reported Reviewed Test Results Reviewed Test Results Lab Laboratory Tests Test 07/22/20 16:45 07/23/20 00:25 07/23/20 06:04 Range/Units White Blood Count 13.6 H 4.3-11.0 10^3/uL Red Blood Count 4.30 3.80-5.11 10^6/uL Hemoglobin 14.8 11.5-16.0 g/dL Hematocrit 44 35-52 % Mean Corpuscular Volume 102 H 80-99 fL Mean Corpuscular Hemoglobin 34 25-34 pg Mean Corpuscular Hemoglobin Concent 34 32-36 g/dL Red Cell Distribution Width 14.0 10.0-14.5 % Platelet Count 244 130-400 10^3/uL Mean Platelet Volume 10.5 9.0-12.2 fL Immature Granulocyte % (Auto) 0 % Neutrophils (%) (Auto) 71 42-75 % Lymphocytes (%) (Auto) 23 12-44 % Monocytes (%) (Auto) 4 0-12 % Eosinophils (%) (Auto) 1 0-10 % Basophils (%) (Auto) 0 0-10 % Neutrophils # (Auto) 9.6 H 1.8-7.8 10^3/uL Lymphocytes # (Auto) 3.2 1.0-4.0 10^3/uL Monocytes # (Auto) 0.5 0.0-1.0 10^3/uL Eosinophils # (Auto) 0.2 0.0-0.3 10^3/uL Basophils # (Auto) 0.0 0.0-0.1 10^3/uL Immature Granulocyte # (Auto) 0.1 0.0-0.1 10^3/uL D-Dimer 0.67 H 0.00-0.49 UG/ML Sodium Level 141 135-145 MMOL/L Potassium Level 3.9 3.6-5.0 MMOL/L Chloride Level 104 98-107 MMOL/L Carbon Dioxide Level 24 21-32 MMOL/L Anion Gap 13 5-14 MMOL/L Blood Urea Nitrogen 9 7-18 MG/DL Creatinine 0.84 0.60-1.30 MG/DL Estimat Glomerular Filtration Rate > 60 BUN/Creatinine Ratio 11 Glucose Level 147 H 70-105 MG/DL Calcium Level 9.4 8.5-10.1 MG/DL Corrected Calcium 9.2 8.5-10.1 MG/DL Magnesium Level 2.2 1.6-2.4 MG/DL Total Bilirubin 0.3 0.1-1.0 MG/DL Aspartate Amino Transf (AST/SGOT) 10 5-34 U/L Alanine Aminotransferase (ALT/SGPT) 10 0-55 U/L Alkaline Phosphatase 123 40-136 U/L Troponin I < 0.028 < 0.028 < 0.028 <0.028 NG/ML B-Type Natriuretic Peptide 76.8 <100.0 PG/ML Total Protein 7.5 6.4-8.2 GM/DL Albumin 4.2 3.2-4.5 GM/DL Thyroid Stimulating Hormone (TSH) 1.19 0.35-4.94 UIU/ML Physical Exam Physical Exam Vital Signs Vital Signs - First Documented 07/22/20 16:37 Temp 36.1 Pulse 186 Resp 18 B/P (MAP) 141/90 (107) Pulse Ox 96 O2 Delivery Room Air Capillary Refill : Less Than 3 Seconds Height, Weight, BMI Height: 5'4.00" Weight: 189lbs. 0.0oz. 85.022517oa; 32.34 BMI Method: General Appearance: No Apparent Distress, WD/WN Eyes: Bilateral Eye Normal Inspection, Bilateral Eye PERRL, Bilateral Eye EOMI HEENT: PERRL/EOMI, TMs Normal Neck: Full Range of Motion, Normal Inspection, Non Tender, Supple, Carotid Bruit Respiratory: No Accessory Muscle Use, No Respiratory Distress, Decreased Breath Sounds, Wheezing (Yes) Cardiovascular: Regular Rate, Rhythm, No Edema, No Gallop, No JVD, No Murmur, Normal Peripheral Pulses Gastrointestinal: Normal Bowel Sounds, Non Tender, Soft Back: Normal Inspection, No CVA Tenderness, No Vertebral Tenderness Extremity: Normal Capillary Refill, Normal Inspection, Normal Range of Motion, Non Tender, No Calf Tenderness, No Pedal Edema Neurologic/Psychiatric: Alert, Oriented x3 Skin: Normal Color, Warm/Dry Lymphatic: No Adenopathy A/P-Cardiology Admission Diagnosis PSVT CAD Hypertension COPD Assessment/Plan Palpitation, paroxysmal supraventricular tachycardia, had multiple episodes in the past, seen in the emergency room with supraventricular tachycardia with a heart rate 160-170 improved after adenosine then had another episode while she still in the emergency room again responded to adenosine, currently on beta blockers heart rate is better, feeling better. I discussed with her the possibility of ablation. I will consult Dr. 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 Otherwise mild coronary artery disease, nonobstructive disease. stress test done in September 30 showing no ischemia or infarction. Continue to monitor Peripheral arterial disease history of bilateral stents done by Dr. Parks in [place]. Peripheral angiogram done July 05, 2017 revealed patent stent in the lower abdominal aorta involving the bifurcation with extension into the left iliac artery. Good brisk flow down to SFA bilaterally. Normal renal arteries. MARIO was normal in September 2018. Complaining of left lower extremity claudication pain at distances less than 50 feet. MARIO's done in the office today revealed abnormal MARIO on left. Underwent angiogram in September 2019 showing total occlusion of the left common iliac artery within the stent, underwent complex intervention with thrombectomy and balloon angioplasty and placed on aggressive anticoagulation returned the next day and still had thrombus in that stent in the left common iliac did balloon angioplasty again then deployment of Omnilink 6 x 59 stent within the old stent and expanding beyond it with excellent results. MARIO done in September 2019 showing normal values and improvement compared to the previous study. Hypertension, restart Toprol and monitor Hyperlipidemia, monitor lipids COPD, managed by primary care physician, currently stable Nonobstructive carotid artery stenosis per carotid duplex done in June 2019, continue to monitor Tobaccoism, we discussed smoking cessation History of hysterectomy, tubal ligation Herniated disc, status post surgical repair done by to be more in December 2018. Okay from cardiology standpoint for discharge and follow-up in my office in 2-4 weeks Clinical Quality Measures AMI/AHF: ASA po Prior to arrival: No DVT/VTE Risk/Contraindication: Risk Factor Score Per Nursin RFS Level Per Nursing on Admit: 2=Moderate JAS CAMACHO MD Jul 23, 2020 9:01 am
--- NOTE | 2020-07-23 09:43 | Electrophysiology Consultation ---
HPI-Cardiology Cardiology Consultation: Date of Consultation 07/23/20 Date of Admission Attending Physician Guadalupe Morataya MD Admitting Physician Haley Claudio MD Consulting Physician Genevieve TOMAS MD HPI: Time Seen by a Provider: 09:38 Chief Complaint: Palpitations This is a 55-year-old lady with palpitations. She has history of mild CAD without PCI, COPD, active smoking. No pertinent family history. She presents with chest discomfort, palpitation and headache. She has had brief previous episodes which resolved on their own. She was found to be in narrow complex tachycardia and required adenosine 12 mg which converted her to sinus rhythm. She went back into PSVT and required 6 mg of adenosine which converted her to sinus rhythm. She is had no further PSVT episodes overnight. She denies diabetes, hypertension, hyperlipidemia. Review of Systems-Cardiology Review of Systems Constitutional: As described under HPI; No As described under HPI, No no symptoms reported, No chills, No fever, No lightheadedness Eyes: No As described under HPI, No no symptoms reported, No blindness, No blurred vision, No contact lenses, No drainage, No decreased acuity, No foreign body sensation, No pain, No vision change Ears/Nose/Throat: No As described under HPI, No no symptoms reported, No chronic hearing loss, No ear discharge, No ear pain, No nasal drainage, No ulcerations Respiratory: No no symptoms reported; As described under HPI; No As described under HPI, No cough, No orthopnea, No shortness of breath, No SOB with excertion Cardiovascular: No no symptoms reported; As described under HPI; No As described under HPI, No chest pain, No edema, No irregular heart rate, No lightheadedness; palpitations Gastrointestinal: No no symptoms reported, No As described under HPI, No abdomen distended, No abdominal pain, No blood streaked bowels, No constipation, No diarrhea, No nausea, No vomiting, No stool coloration changes Genitourinary: No As described under HPI, No burning, No dysuria, No discharge, No frequency, No flank pain, No hematuria, No urgency : Yes : No Skin: No rash, No skin related problems, No ulcerations Psychiatric/Neurological: No anxiety, No depression, No seizure, No focal weakness, No syncope Hematologic: No bleeding abnormalities BTL-Dxyhwm-Chmbkc Hx Patient Social History Alcohol Use: Denies Use Recreational Drug Use: No Smoking Status: Current Everyday Smoker Type Used: Cigarettes 2nd Hand Smoke Exposure: Yes Recent Foreign Travel: No Recent Infectious Disease Expo: No Hospitalization with Isolation: Denies Immunizations Up To Date Tetanus Booster (TDap): More than 5yrs Past Medical History PMH As described under Assessment. Allergies and Home Medications Allergies Coded Allergies: No Known Drug Allergies (Unverified , 05/28/19) Home Medications Acetaminophen 500 Mg Tablet, 1,000-1,500 MG PO Q8H PRN for PAIN-MILD (1-4), (Reported) Albuterol Sulfate 1 Puff Puff, 2 PUFF IH Q4H PRN for WHEEZING, (Reported) 1 PUFF = 90 MCG Aspirin 81 Mg Tablet.dr, 81 MG PO DAILY Prescribed by: JAS WASHINGTON on 09/21/19 1038 Atorvastatin Calcium 80 Mg Tablet, 80 MG PO HS Prescribed by: JAS WASHINGTON on 09/21/19 1038 Clopidogrel Bisulfate 75 Mg Tablet, 75 MG PO DAILY Prescribed by: JAS WASHINGTON on 09/21/19 1038 Lisinopril 5 Mg Tablet, 5 MG PO DAILY Prescribed by: JAS WASHINGTON on 09/21/19 1038 Pantoprazole Sodium 40 Mg Granpkt.dr, 40 MG PO DAILY Prescribed by: JAS WASHINGTON on 09/21/19 1038 Quetiapine Fumarate 100 Mg Tablet, 100 MG PO 1900, (Reported) Patient Home Medication List Home Medication List Reviewed: Yes Physical Exam-Cardiology Physical Exam Vital Signs/I&O 07/23/20 07/23/20 07/23/20 07/23/20 00:00 01:00 04:00 07:00 Temp 36.6 36.3 Pulse 67 62 61 63 Resp 18 16 B/P (MAP) 119/74 (89) 108/72 (84) Pulse Ox 97 94 O2 Delivery Room Air Room Air 07/23/20 08:15 Temp 36.3 Pulse 61 Resp 18 B/P (MAP) 130/62 (84) Pulse Ox 97 O2 Delivery Room Air 07/23/20 00:00 Intake Total 1400 ml Balance 1400 ml Capillary Refill : Less Than 3 Seconds Constitutional: appears stated age; No apparent distress; well-developed, well- nourished HEENT: PERRL; No discharge; hearing is well preserved, oral hygience is good; No ulceration, No xanthelasmas are seen Neck: No carotid bruit; carotid pulses are 2 + bilaterally Respiratory: chest is bilaterally symmetric, lungs clear to auscultation Cardiovascular: regular rate-rhythm, S1 and S2 Gastrointestinal: soft, audible bowel sounds; No spleenomegaly Rectal: deferred Extremities: normal range of motion, non-tender, normal inspection; No clubbing, No cyanosis; no lower extremity edema bilateral; No significant edema Neurologic/Psychiatric: no motor/sensory deficits, alert, normal mood/affect, oriented x 3, power is 5/5 both on sides Skin: normal color; No rash, No ulcerations Data Review Labs Laboratory Tests 07/22/20 16:45: White Blood Count 13.6H, Red Blood Count 4.30, Hemoglobin 14.8, Hematocrit 44, Mean Corpuscular Volume 102H, Mean Corpuscular Hemoglobin 34, Mean Corpuscular Hemoglobin Concent 34, Red Cell Distribution Width 14.0, Platelet Count 244, Mean Platelet Volume 10.5, Immature Granulocyte % (Auto) 0, Neutrophils (%) (Auto) 71, Lymphocytes (%) (Auto) 23, Monocytes (%) (Auto) 4, Eosinophils (%) (Auto) 1, Basophils (%) (Auto) 0, Neutrophils # (Auto) 9.6H, Lymphocytes # (Auto) 3.2, Monocytes # (Auto) 0.5, Eosinophils # (Auto) 0.2, Basophils # (Auto) 0.0, Immature Granulocyte # (Auto) 0.1, D-Dimer 0.67H, Sodium Level 141, Po tassium Level 3.9, Chloride Level 104, Carbon Dioxide Level 24, Anion Gap 13, Blood Urea Nitrogen 9, Creatinine 0.84, Estimat Glomerular Filtration Rate > 60, BUN/Creatinine Ratio 11, Glucose Level 147H, Calcium Level 9.4, Corrected Ca lcium 9.2, Magnesium Level 2.2, Total Bilirubin 0.3, Aspartate Amino Transf (AST/SGOT) 10, Alanine Aminotransferase (ALT/SGPT) 10, Alkaline Phosphatase 123, Troponin I < 0.028, B-Type Natriuretic Peptide 76.8, Total Protein 7.5, Albumin 4.2, Thyroid Stimulating Hormone (TSH) 1.19 07/23/20 00:25: Troponin I < 0.028 07/23/20 06:04: Troponin I < 0.028 ECG Impression ECG Initial ECG Rhythm: SVT A/P-Cardiology Assessment/Admission Diagnosis PSVT, COPD, Mild CAD, Active smoking Plan PSVT, which responded to adenosine. Likely AVNRT. I discussed at length with the patient and explained the mechanism, pathophysiology, treatment options for PSVT. I recommended EP study and possible ablation which has excellent success rate of more than 95 percent. 1 percent risk of pacemaker was discussed. The patient accepted all risks and would like to undergo with the procedure. I off ered that we could do it tomorrow morning 07/24/2020. Patient is a little bit hesitant to do it tomorrow morning. She is going to discuss with her and let us know. If she decides to do it as an outpatient, she can be discharged and my office can discuss with her on an appropriate time and day. COPD, defer to the primary team. Mild CAD, defer to Dr. Washington. Active smoking, smoking cessation was recommended. Thank you for your consultation. Please call me if you have any questions. Lakesha Tomas MD, FACP, FACC, FSCAI, FHRS, CCDS Interventional Cardiology Cardiac Electrophysiology Vascular Medicine and Endovascular Interventions Clinical Quality Measures AMI/AHF: ASA po Prior to arrival: No DVT/VTE Risk/Contraindication: Risk Factor Score Per Nursin RFS Level Per Nursing on Admit: 2=Moderate Genevieve TOMAS MD Jul 23, 2020 09:43
--- NOTE | 2020-07-23 10:06 | NUR ---
PT WANTS TO DC HOME TODAY, DOES NOT WANT ABLATION W/ DR ALANIZ WHILE INPT. DR ALANIZ INFORMED. ALL PROGRESS NOTES, H&P FAXED TO [facility] AT DR GUERRA OFFICE PER REQUEST TO SCHEDULE OUTPT EP.
[2020-07-23] MEDS ORDERED: METO50TA7 PO ×2 (10:30)
--- NOTE | 2020-07-23 10:34 | Discharge Summary ---
Discharge Summary Hospital Course Problems/Diagnosis: (1) PVD (peripheral vascular disease) Status: Chronic Assessment & Plan: Continue home plavix and atorvastatin. (2) Paroxysmal supraventricular tachycardia Status: Acute Assessment & Plan: Seen by Cardiology, discussed EP study and possible ablation, she preferred to consider longer and follow up outpatient. Started metoprolol. Hospital Course Date of Admission: Jul 22, 2020 at 18:38 Admission Diagnosis : Family Physician/Provider: No,Local Physician Date of Discharge: 07/23/20 Discharge Diagnosis: See problem list Hospital Course: See problem list Labs and Pending Lab Test: Laboratory Tests 07/22/20 16:45: White Blood Count 13.6H, Red Blood Count 4.30, Hemoglobin 14.8, Hematocrit 44, Mean Corpuscular Volume 102H, Mean Corpuscular Hemoglobin 34, Mean Corpuscular Hemoglobin Concent 34, Red Cell Distribution Width 14.0, Platelet Count 244, Mean Platelet Volume 10.5, Immature Granulocyte % (Auto) 0, Neutrophils (%) (Auto) 71, Lymphocytes (%) (Auto) 23, Monocytes (%) (Auto) 4, Eosinophils (%) (Auto) 1, Basophils (%) (Auto) 0, Neutrophils # (Auto) 9.6H, Lymphocytes # (Auto) 3.2, Monocytes # (Auto) 0.5, Eosinophils # (Auto) 0.2, Basophils # (Auto) 0.0, Immature Granulocyte # (Auto) 0.1, D-Dimer 0.67H, Sodium Level 141, Potassium Level 3.9, Chloride Level 104, Carbon Dioxide Level 24, Anion Gap 13, Blood Urea Nitrogen 9, Creatinine 0.84, Estimat Glomerular Filtration Rate > 60, BUN/Creatinine Ratio 11, Glucose Level 147H, Calcium Level 9.4, Corrected Calcium 9.2, Magnesium Level 2.2, Total Bilirubin 0.3, Aspartate Amino Transf (AST/SGOT) 10, Alanine Aminotransferase (ALT/SGPT) 10, Alkaline Phosphatase 123, Troponin I < 0.028, B-Type Natriuretic Peptide 76.8, Total Protein 7.5, Albumin 4.2, Thyroid Stimulating Hormone (TSH) 1.19 07/23/20 00:25: Troponin I < 0.028 07/23/20 06:04: Troponin I < 0.028 Home Meds Active Metoprolol Succinate 50 Mg Tab.er.24h 50 Mg PO DAILY Protonix (Pantoprazole Sodium) 40 Mg Granpkt.dr 40 Mg PO DAILY Aspirin EC (Aspirin) 81 Mg Tablet.dr 81 Mg PO DAILY Lisinopril 5 Mg Tablet 5 Mg PO DAILY Atorvastatin Calcium 80 Mg Tablet 80 Mg PO HS Clopidogrel (Clopidogrel Bisulfate) 75 Mg Tablet 75 Mg PO DAILY Reported Tylenol Extra Strength (Acetaminophen) 500 Mg Tablet 1,000-1,500 Mg PO Q8H PRN Seroquel (Quetiapine Fumarate) 100 Mg Tablet 100 Mg PO 1900 Proair Hfa (Albuterol Sulfate) 1 Puff Puff 2 Puff IH Q4H PRN 1 PUFF = 90 MCG Assessment/Pt DC Instructions Follow up with Dr. Washington and Dr. Tomas as directed Follow up with Dr. Claudio at [facility] in [place] on 07/27 at 11 am Discharge Diet: Cardiac Diet Activity as Tolerated: Yes Discharge Physical Examination Allergies: Coded Allergies: No Known Drug Allergies (Unverified , 05/28/19) General Appearance: No Apparent Distress, WD/WN Respiratory: Lungs Clear, Normal Breath Sounds Cardiovascular: Regular Rate, Rhythm, No Edema, No Murmur Gastrointestinal: Normal Bowel Sounds, Non Tender, Soft Skin: Normal Color, Warm/Dry Neurologic/Psychiatric: Alert, Normal Mood/Affect Copy Copies To 1: Haley Claudio MD Clinical Quality Measures AMI/AHF: ASA po Prior to arrival: No DVT/VTE Risk/Contraindication: Risk Factor Score Per Nursin RFS Level Per Nursing on Admit: 2=Moderate SOHAN CHAVEZ MD Jul 23, 2020 10:33
--- NOTE | 2020-07-23 10:55 | NUR ---
CHARMAINE SANTOS demonstrates understanding of discharge instructions and accurately returns instructions upon questioning. Copy of Post-Discharge Instructions and Medication Discharge Instructions given to PT. CHARMAINE SANTOS is able to manage continuing needs after discharge. Patients belongings returned to PT. Skin dry and intact; no breakdown noted. Patient discharged from [facility] on 07/23/20 at 1055. CHARMAINE SANTOS left floor via , accompanied by STAFF.
== END 2020-07-23 10:59 | disposition home or self-care (01) ==
LOC: EDUNIT# 16:37 → ER 16:40 → UNDOADMOB 18:38 → CSD 18:38 → UNDODISOB 07-23 10:55
PROVIDERS: ADMIT Internal Medicine; ATTEND Family Medicine
DX: I73.9 Peripheral vascular disease, unspecified (principal); I47.1 Supraventricular tachycardia; I25.10 Atherosclerotic heart disease of native coronary artery without angina pectoris; E78.00 Pure hypercholesterolemia, unspecified; I10 Essential (primary) hypertension; K44.9 Diaphragmatic hernia without obstruction or gangrene; G89.29 Other chronic pain; M54.5 Low back pain; F32.9 Major depressive disorder, single episode, unspecified; E78.5 Hyperlipidemia, unspecified; J45.909 Unspecified asthma, uncomplicated; I65.29 Occlusion and stenosis of unspecified carotid artery; J43.9 Emphysema, unspecified; F17.210 Nicotine dependence, cigarettes, uncomplicated; Z79.82 Long term (current) use of aspirin; Z79.899 Other long term (current) drug therapy; Z90.710 Acquired absence of both cervix and uterus
CPT/HCPCS: 71045; 71275; 80053; 83735; 83880; 84443; 84484 ×2; 85025; 85379; 93005; 99284; G0378; 36415

== ENCOUNTER 2020-07-28 20:38 | Emergency (ER) | payer MEDICARE, MEDICAID ==
[~2020-07-28] VITALS: Ht 163 cm; Wt 84.3 kg
[~2020-07-28 20:38] MED LIST changes: +METO50TA7 PO
[2020-07-28] MEDS ORDERED: ADENOSINE 6 MG/2 ML (ADENOCARD) VIAL IV ONE ×4 (20:42→21:00)
--- NOTE | 2020-07-28 20:57 | ED Cardiac General ---
History of Present Illness General Chief Complaint: Cardiac/General Problems Stated Complaint: PALPITATIONS Source: patient Exam Limitations: no limitations History of Present Illness Date Seen by Provider: Jul 28, 2020 Time Seen by Provider: 20:57 Initial Comments To ER with reports of palpitations. This began about 6 PM. I admit her just the other day for recurrent SVT. She was scheduled for ablation but left the hospital because she stated she did not sleep during the night. Timing/Duration: 1-3 hours Severity: moderate Activities at Onset: none NTG SL PROCESSING TECH: No ASA po PROCESSING TECH: No Allergies and Home Medications Allergies Coded Allergies: No Known Drug Allergies (Unverified , 05/28/19) Home Medications Acetaminophen 500 Mg Tablet, 1,000-1,500 MG PO Q8H PRN for PAIN-MILD (1-4), (Reported) Albuterol Sulfate 1 Puff Puff, 2 PUFF IH Q4H PRN for WHEEZING, (Reported) 1 PUFF = 90 MCG Aspirin 81 Mg Tablet., 81 MG PO DAILY Prescribed by: JAS CAMACHO on 09/21/19 1038 Atorvastatin Calcium 80 Mg Tablet, 80 MG PO HS Prescribed by: JAS CAMACHO on 09/21/19 1038 Clopidogrel Bisulfate 75 Mg Tablet, 75 MG PO DAILY Prescribed by: JAS CAMACHO on 09/21/19 1038 Lisinopril 5 Mg Tablet, 5 MG PO DAILY Prescribed by: JAS CAMACHO on 09/21/19 1038 Metoprolol Succinate 50 Mg Tab.er.24h, 50 MG PO DAILY Prescribed by: SOHAN CHAVEZ on 07/23/20 1030 Pantoprazole Sodium 40 Mg , 40 MG PO DAILY Prescribed by: JAS CAMACHO on 09/21/19 1038 Quetiapine Fumarate 100 Mg Tablet, 100 MG PO 1900, (Reported) Patient Home Medication List Home Medication List Reviewed: Yes Review of Systems Review of Systems Constitutional: see HPI EENTM: No Symptoms Reported Respiratory: No Symptoms Reported Cardiovascular: See HPI, Chest Pain, Palpitations Gastrointestinal: No Symptoms Reported Genitourinary: No Symptoms Reported Musculoskeletal: no symptoms reported Skin: no symptoms reported Psychiatric/Neurological: No Symptoms Reported Endocrine: No Symptoms Reported Hematologic/Lymphatic: No Symptoms Reported Past Ofnyigr-Oxuhsz-Gliimj Hx Patient Social History Type Used: Cigarettes 2nd Hand Smoke Exposure: Yes Recent Foreign Travel: No Contact w/Someone Who Travel: No Recent Hopitalizations: No Immunizations Up To Date Tetanus Booster (TDap): More than 5yrs Seasonal Allergies Seasonal Allergies: No Past Medical History Surgeries: Yes (removed an extra HEART valve at age 2, NECK) Section, Hysterectomy, Tubal Ligation Respiratory: Yes Emphysema Cardiac: Yes Coronary Artery Disease, High Cholesterol, Hypertension, Palpitations Neurological: No Sexually Transmitted Disease: No HIV/AIDS: No Genitourinary: No Gastrointestinal: Yes Hiatal Hernia Musculoskeletal: Yes Chronic Back Pain Endocrine: No (WATCHING BLOOD SUGARS-SOMETIMES RUNS HIGH) HEENT: Yes (READING GLASSES, DENTURES) Loss of Vision: Denies Hearing Impairment: Denies Cancer: No Psychosocial: Yes Depression Integumentary: Yes (BLISTERS ON HANDS AND FEET) Blood Disorders: No Adverse Reaction/Blood Tranf: No Family Medical History Cancer, CVA, Lung Disease Physical Exam Vital Signs Vital Signs - First Documented 07/28/20 20:41 Temp 36.6 Pulse 181 Resp 22 B/P (MAP) 143/108 (120) Pulse Ox 97 O2 Delivery Room Air Capillary Refill : Height, Weight, BMI Height: 5'4.00" Weight: 189lbs. 0.0oz. 85.201946se; 32.34 BMI Method: General Appearance: No Apparent Distress, WD/WN, Other (. Patient alert and oriented mentating well neuro complex tach cardia of 181.) Neck: Full Range of Motion, Normal Inspection Respiratory: No Accessory Muscle Use, No Respiratory Distress Cardiovascular: Normal Peripheral Pulses, Tachycardia Gastrointestinal: Normal Bowel Sounds, Non Tender, Soft Neurologic/Psychiatric: Alert, Oriented x3 Skin: Normal Color, Warm/Dry Progress/Results/Core Measures Results/Orders Lab Results Laboratory Tests Test 07/28/20 20:40 Range/Units White Blood Count 15.8 H 4.3-11.0 10^3/uL Red Blood Count 4.38 3.80-5.11 10^6/uL Hemoglobin 14.7 11.5-16.0 g/dL Hematocrit 45 35-52 % Mean Corpuscular Volume 102 H 80-99 fL Mean Corpuscular Hemoglobin 34 25-34 pg Mean Corpuscular Hemoglobin Concent 33 32-36 g/dL Red Cell Distribution Width 14.0 10.0-14.5 % Platelet Count 265 130-400 10^3/uL Mean Platelet Volume 10.8 9.0-12.2 fL Immature Granulocyte % (Auto) 0 % Neutrophils (%) (Auto) 68 42-75 % Lymphocytes (%) (Auto) 26 12-44 % Monocytes (%) (Auto) 5 0-12 % Eosinophils (%) (Auto) 1 0-10 % Basophils (%) (Auto) 0 0-10 % Neutrophils # (Auto) 10.7 H 1.8-7.8 10^3/uL Lymphocytes # (Auto) 4.1 H 1.0-4.0 10^3/uL Monocytes # (Auto) 0.7 0.0-1.0 10^3/uL Eosinophils # (Auto) 0.2 0.0-0.3 10^3/uL Basophils # (Auto) 0.1 0.0-0.1 10^3/uL Immature Granulocyte # (Auto) 0.1 0.0-0.1 10^3/uL Prothrombin Time 12.8 12.2-14.7 SEC INR Comment 0.9 0.8-1.4 Activated Partial Thromboplast Time 39 H 24-35 SEC Sodium Level 142 135-145 MMOL/L Potassium Level 4.0 3.6-5.0 MMOL/L Chloride Level 104 98-107 MMOL/L Carbon Dioxide Level 24 21-32 MMOL/L Anion Gap 14 5-14 MMOL/L Blood Urea Nitrogen 7 7-18 MG/DL Creatinine 1.07 0.60-1.30 MG/DL Estimat Glomerular Filtration Rate 53 BUN/Creatinine Ratio 7 Glucose Level 132 H 70-105 MG/DL Calcium Level 9.4 8.5-10.1 MG/DL Corrected Calcium 9.2 8.5-10.1 MG/DL Magnesium Level 2.1 1.6-2.4 MG/DL Total Bilirubin 0.4 0.1-1.0 MG/DL Aspartate Amino Transf (AST/SGOT) 10 5-34 U/L Alanine Aminotransferase (ALT/SGPT) 9 0-55 U/L Alkaline Phosphatase 129 40-136 U/L Myoglobin 18.3 10.0-92.0 NG/ML Troponin I < 0.028 <0.028 NG/ML Total Protein 7.7 6.4-8.2 GM/DL Albumin 4.3 3.2-4.5 GM/DL My Orders Orders - ERNESTINE JOSEPH APRN Diltiazem Injection (Cardizem Injection) (07/28/20 21:00) Adenosine Injection (Adenocard Injection (07/28/20 21:00) Adenosine Injection (Adenocard Injection (07/28/20 21:00) Cbc With Automated Diff (07/28/20 20:54) Magnesium (07/28/20 20:54) Chest 1 View, Ap/Pa Only (07/28/20 20:54) Ekg Tracing (07/28/20 20:54) Comprehensive Metabolic Panel (07/28/20 20:54) Myoglobin Serum (07/28/20 20:54) Protime With Inr (07/28/20:54) Partial Thromboplastin Time (07/28/20 20:54) O2 (07/28/20 20:54) Monitor-Rhythm Ecg Trace Only (07/28/20 20:54) Lipid Panel (07/29/20 06:00) Ed Iv/Invasive Line Start (07/28/20 20:54) Troponin I (07/28/20 20:54) Aspirin Chewable Tablet (Baby Aspirin Ch (07/28/20 21:00) Ns Iv 500 Ml (Sodium Chloride 0.9%) (07/28/20 21:00) Diltiazem Injection (Cardizem Injection) (07/28/20 21:00) Diltiazem Cd 24 Hr Capsule (Cardizem Cd (07/29/20 09:00) Manual Differential (07/28/20 20:40) Diltiazem Cd 24 Hr Capsule (Cardizem Cd (07/28/20 21:07) Ekg Tracing (07/28/20 21:14) Medications Given in ED Current Medications Medications Dose Ordered Sig/Evaristo Route Start Time Stop Time Status Last Admin Dose Admin Adenosine 6 mg ONCE ONCE IV 07/28/20 21:00 07/28/20 21:01 DC 07/28/20 20:47 6 MG Adenosine 6 mg ONCE ONCE IV 07/28/20 21:00 07/28/20 21:01 DC 07/28/20 20:54 6 MG Aspirin 324 mg ONCE ONCE PO 07/28/20 21:00 07/28/20 21:01 DC 07/28/20 21:00 324 MG Diltiazem HCl 10 mg ONCE ONCE IVP 07/28/20 21:00 07/28/20 21:01 DC 07/28/20 20:56 10 MG Diltiazem HCl 10 mg ONCE ONCE IVP 07/28/20 21:00 07/28/20 21:01 DC 07/28/20 21:05 10 MG Vital Signs/I&O 07/28/20 20:41 Temp 36.6 Pulse 181 Resp 22 B/P (MAP) 143/108 (120) Pulse Ox 97 O2 Delivery Room Air Departure Communication (Admissions) 2100-patient was given a 6 mg of adenosine with resultant conversion to sinus tach rate of 105. This did last 5 minutes or so before she went back into SVT again and was again brought out of it by another 6 mg of adenosine. She was then given Cardizem 20 mg IV bolus and Cardizem CD 120 mg orally and 500 mL of normal saline. Cardizem seem to work better than the post-conversion Lopressor that I gave last week. 2135-Stable HR or 83 BP 134/82. Will dc to home on RX for cardizem cd 120mg po daily. Spoke with Dr Tomas and he agrees. Will follow up outpatient. Impression Primary Impression: Paroxysmal supraventricular tachycardia Disposition: ADMITTED INPATIENT Condition: Stable Admissions Decision to Admit Reason: Admit from ER (General) Decision to Admit/Date: Jul 28, 2020 Time/Decision to Admit Time: 21:01 Departure-Patient Inst. Decision time for Depature: 21:34 Referrals: YOEL PAULSON MD (PCP) Primary Care Physician NELI,LOCAL PHYSICIAN (Family) Primary Care Physician Genevieve TOMAS MD Patient Instructions: Supraventricular Tachycardia (SVT) Add. Discharge Instructions: Call Dr. Qiu office to make an appointment to be seen for follow-up. Take medication as directed in the meantime. All discharge instructions reviewed with patient and/or family. Voiced underst anding. Scripts Diltiazem HCl (Cardizem Cd) 120 Mg Cap.er.24h 120 MG PO DAILY, #30 CAP Prov: ERNESTINE JOSEPH APRN 07/28/20 ERNESTINE JOSEPH PRESS ASSISTANT Jul 28, 2020 20:57
[2020-07-28] MEDS ORDERED: NS IV 500 ML 500 ML IV SCH (21:00)
[2020-07-28] MEDS ORDERED: ASPIRIN 81 MG CHEW (CHILDREN'S ASA) PO ONE (21:00)
[2020-07-28 21:03] LABS: BASOPHILS # (AUTO) 0.1 10^3/uL (0.0-0.1); BASOPHILS % (AUTO) 0 % (0-10); EOSINOPHILS # (AUTO) 0.2 10^3/uL (0.0-0.3); EOSINOPHILS % (AUTO) 1 % (0-10); HEMATOCRIT 45 % (35-52); HEMOGLOBIN 14.7 g/dL (11.5-16.0); LYMPHOCYTES # (AUTO) 4.1 10^3/uL (1.0-4.0); LYMPHOCYTES % (AUTO) 26 % (12-44); MEAN CORPUSCULAR HEMOGLOBIN 34 pg (25-34); MEAN CORPUSCULAR HGB CONC 33 g/dL (32-36); MEAN CORPUSCULAR VOLUME 102 fL (80-99); MEAN PLATELET VOLUME 10.8 fL (9.0-12.2); MONOCYTES # (AUTO) 0.7 10^3/uL (0.0-1.0); MONOCYTES % (AUTO) 5 % (0-12); NEUTROPHILS # (AUTO) 10.7 10^3/uL (1.8-7.8); NEUTROPHILS % (AUTO) 68 % (42-75); PLATELET COUNT 265 10^3/uL (130-400); WHITE BLOOD COUNT 15.8 10^3/uL (4.3-11.0)
[2020-07-28] MEDS ORDERED: dilTIAZem120 MG (CARDIZEM CD) CAP PO ONE (21:07)
[2020-07-28 21:10] LABS: ALBUMIN 4.3 GM/DL (3.2-4.5)
[2020-07-28 21:12] LABS: CALCIUM 9.4 MG/DL (8.5-10.1); INR 0.9 (0.8-1.4); PROTHROMBIN TIME PATIENT 12.8 SEC (12.2-14.7)
[2020-07-28 21:13] LABS: TOTAL PROTEIN 7.7 GM/DL (6.4-8.2)
--- NOTE | 2020-07-28 21:13 | Diagnostic Imaging Report ---
INDICATION: Chest pain. Heart palpitations. TECHNIQUE: Single view chest 9:16 PM. CORRELATION STUDY: 07/22/2020 FINDINGS: The heart size, mediastinal configuration and pulmonary vascularity are within normal limits. Lung galeano are somewhat hyperinflated. No definitive consolidating infiltrate. IMPRESSION: 1. Negative for acute abnormality of the chest. Dictated by: Dictated on workstation # [id number]
[2020-07-28 21:15] LABS: BILIRUBIN,TOTAL 0.4 MG/DL (0.1-1.0)
[2020-07-28 21:17] LABS: CREATININE SERUM 1.07 MG/DL (0.60-1.30)
[2020-07-28 21:19] LABS: MAGNESIUM 2.1 MG/DL (1.6-2.4)
[2020-07-28] MEDS ORDERED: DILT120C82 PO (21:36)
[2020-07-28 21:47] VITALS: BP 132/68
[2020-07-28 22:20] LABS: EOSINOPHILS % (MANUAL) 2 %; LYMPHOCYTES % (MANUAL) 34 %; MONOCYTES % (MANUAL) 4 %; NEUTROPHILS % (MANUAL) 60 %; RBC MORPH NORMAL
[2020-07-29] MEDS ORDERED: dilTIAZem120 MG (CARDIZEM CD) CAP PO SCH (09:00)
== END 2020-07-28 21:51 | disposition other institution (70) ==
LOC: EDUNIT# 20:38 → ER 20:39
DX: I47.1 Supraventricular tachycardia (principal); I10 Essential (primary) hypertension; F32.9 Major depressive disorder, single episode, unspecified; E78.00 Pure hypercholesterolemia, unspecified; Z80.9 Family history of malignant neoplasm, unspecified; Z77.22 Contact with and (suspected) exposure to environmental tobacco smoke (acute) (chronic); Z79.82 Long term (current) use of aspirin
CPT/HCPCS: 36415; 71045; 80053; 83735; 83874; 84484; 85007; 85027; 85610; 85730; 93041

== ENCOUNTER → 2020-11-11 | Outpatient (CLI) | payer MEDICARE, MEDICAID ==
[~2020-11-11] MED LIST changes: +DILT120C82 PO; -LISI-552 PO; -LISI-556 PO; +LISI-729 PO; +LISI20TA26 PO; +QUET25TA34 PO; -QUET25TA73 PO
== END ==
LOC: LABNPT 08:54
PROVIDERS: ATTEND Nurse Practitioner Family
DX: Z01.812 Encounter for preprocedural laboratory examination (principal); Z20.822 Contact with and (suspected) exposure to COVID-19
CPT/HCPCS: 87635

== ENCOUNTER 2020-11-13 18:57 | Outpatient (CLI) | payer MEDICARE, MEDICAID | END 2020-11-14 06:15 | disposition home or self-care (01) | LOC: SLEEP 18:57 | PROVIDERS: ATTEND Nurse Practitioner Family | DX: Z01.818 Encounter for other preprocedural examination (principal); G47.30 Sleep apnea, unspecified; G47.50 Parasomnia, unspecified; G47.10 Hypersomnia, unspecified | CPT/HCPCS: 95810 ==

== ENCOUNTER → 2021-07-23 | Outpatient (CLI) | payer MEDICARE, MEDICAID ==
[~2021-07-23] MED LIST changes: -QUET25TA34 PO; +QUET25TA35 PO
--- NOTE | 2021-07-23 11:12 | Diagnostic Imaging Report ---
CT Lung Screening INDICATION: Screening for lung cancer, 10-wyne-jtwf history of smoking, current smoker. TECHNIQUE: Noncontrast, low-dose CT imaging performed according to the lung cancer screening protocol. Auto Exposure Controls were utilize during the CT exam to meet ALARA standards for radiation dose reduction. COMPARISON: 07/22/2020 and 08/30/2019. FINDINGS: No significant adenopathy within the chest. Mild scattered vascular calcifications without aneurysmal dilatation of the thoracic aorta. Ductus bump/ductus diverticulum is noted involving the aortic arch. The heart is within normal limits in size. No pericardial effusion. No pleural effusion. No pneumothorax. 0.3 cm solid left upper lobe pulmonary nodule anteriorly is unchanged since 2019 and benign. Minimal scattered scarring within the lungs bilaterally. No additional focal pulmonary opacity. Dependently layering secretions within the trachea. The minimally visualized upper abdomen is unremarkable. Scattered osseous degenerative changes without acute osseous abnormality. IMPRESSION: No acute abnormality. Stable benign 0.3 cm left upper lobe pulmonary nodule without new pulmonary nodule. Mild background emphysematous changes. LUNG-RADS CATEGORY: 2S: Benign appearance or behavior. MODIFIER: S: Mild background emphysematous changes. FOLLOW-UP: Continued annual low-dose CT of the chest in 12 months. Dictated by: Dictated on workstation # [id number]
== END ==
LOC: RAD 09:04
PROVIDERS: ATTEND Nurse Practitioner Family
DX: Z12.2 Encounter for screening for malignant neoplasm of respiratory organs (principal); R91.1 Solitary pulmonary nodule; F17.210 Nicotine dependence, cigarettes, uncomplicated
CPT/HCPCS: 71271

== ENCOUNTER → 2021-07-26 | Outpatient (CLI) | payer MEDICARE, MEDICAID ==
[~2021-07-26] MED LIST changes: +RT-ALBUTEROL SULF 2.5 MG/3 ML PRE-MIX VIAL INH ONE
== END ==
LOC: RT 10:45
PROVIDERS: ATTEND Nurse Practitioner Family
DX: J44.9 Chronic obstructive pulmonary disease, unspecified (principal)
CPT/HCPCS: 94060; 94726; 94729

== ENCOUNTER → 2021-08-26 | Outpatient (CLI) | payer MEDICARE, MEDICAID ==
[~2021-08-26] MED LIST changes: -LISI-729 PO; +LISI5TAB20 PO; -RT-ALBUTEROL SULF 2.5 MG/3 ML PRE-MIX VIAL INH ONE
== END ==
LOC: CARD 11:30
PROVIDERS: ATTEND Physician Assistant
DX: I49.9 Cardiac arrhythmia, unspecified (principal)
CPT/HCPCS: 93225; 93226

== ENCOUNTER 2022-05-10 16:24 | Emergency (ER) | payer MEDICARE, MEDICAID ==
[~2022-05-10] VITALS: Ht 162.5 cm; Wt 89.8 kg
[2022-05-10] MEDS ORDERED: ONDANSETRON 4 MG/2 ML (SDV) Z0FRAN IVP ONE (17:00)
[2022-05-10] MEDS ORDERED: fentaNYL INJ 100 MCG/2 ML AMP IVP ONE (17:00)
--- NOTE | 2022-05-10 17:03 | ED Abdominal Pain ---
General Chief Complaint: Abdominal/GI Problems Stated Complaint: STOMACH PAIN, BACK PAIN Nursing Triage Note: PT C/O ABD PAIN AND BACK PAIN SINCE THIS AFTERNOON. STATES SHE HAS ALSO VOMITED. Source of Information: Patient Exam Limitations: No Limitations History of Present Illness Date Seen by Provider: May 10, 2022 Time Seen by Provider: 17:03 Allergies and Home Medications Allergies Coded Allergies: No Known Drug Allergies (Unverified , 05/28/19) Patient Home Medication List Acetaminophen (Tylenol Extra Strength) 500 Mg Tablet, 1,000-1,500 MG PO Q8H PRN for PAIN-MILD (1-4), (Reported) Entered as Reported by: YUE SAVAGE on 09/18/19 1422 Albuterol Sulfate (Proair Hfa) 1 Puff Puff, 2 PUFF IH Q4H PRN for WHEEZING, (Reported) Entered as Reported by: YUE SAVAGE on 09/18/19 0840 Aspirin (Aspirin EC) 81 Mg Tablet.dr, 81 MG PO DAILY Prescribed by: JAS CAMACHO on 09/21/19 1038 Atorvastatin Calcium (Atorvastatin Calcium) 80 Mg Tablet, 80 MG PO HS Prescribed by: JAS CAMACHO on 09/21/19 1038 Clopidogrel Bisulfate (Clopidogrel) 75 Mg Tablet, 75 MG PO DAILY Prescribed by: JAS CAMACHO on 09/21/19 1038 Diltiazem HCl (Cardizem Cd) 120 Mg Cap.er.24h, 120 MG PO DAILY Prescribed by: ERNESTINE JOSEPH on 07/28/20 2136 Lisinopril (Lisinopril) 5 Mg Tablet, 5 MG PO DAILY Prescribed by: JAS CAMACHO on 09/21/19 1038 Metoprolol Succinate (Metoprolol Succinate) 50 Mg Tab.er.24h, 50 MG PO DAILY Prescribed by: SOHAN CHAVEZ on 07/23/20 1030 Pantoprazole Sodium (Protonix) 40 Mg Flaviokt, 40 MG PO DAILY Prescribed by: JAS CAMACHO on 09/21/19 1038 Quetiapine Fumarate (Seroquel) 100 Mg Tablet, 100 MG PO 1900, (Reported) Entered as Reported by: YUE SAVAGE on 09/18/19 0840 Past Knwoxwv-Khiqrl-Nirtfv Hx Patient Social History Tobacco Use?: Yes Smoking Status: Current Everyday Smoker Use of E-Cig and/or Vaping dev: No Substance use?: No Alcohol Use?: No Pt feels they are or have been: No Immunizations Up To Date Tetanus Booster (TDap): More than 5yrs Seasonal Allergies Seasonal Allergies: No Past Medical History Surgeries: Yes (removed an extra HEART valve at age 2, NECK) Section, Hysterectomy, Tubal Ligation Respiratory: Yes Emphysema Cardiac: Yes Coronary Artery Disease, High Cholesterol, Hypertension, Irregular Heartbeat, Palpitations Neurological: No Sexually Transmitted Disease: No HIV/AIDS: No Genitourinary: No Gastrointestinal: Yes Hiatal Hernia Musculoskeletal: Yes Chronic Back Pain Endocrine: No HEENT: Yes Loss of Vision: Denies Hearing Impairment: Denies Cancer: No Psychosocial: Yes Depression Integumentary: Yes Eczema Blood Disorders: No Adverse Reaction/Blood Tranf: No Family Medical History Cancer, CVA, Lung Disease Physical Exam Vital Signs Vital Signs - First Documented 05/10/22 16:35 Temp 35.9 Pulse 70 Resp 19 B/P (MAP) 116/75 (89) Capillary Refill : Less Than 3 Seconds Height/Weight/BMI Height: 5'4.00" Weight: 189lbs. 0.0oz. 85.884722uw; 34.00 BMI Method: Progress/Results/Core Measures Results/Orders Lab Results Laboratory Tests Test 05/10/22 16:37 05/10/22 16:55 Range/Units White Blood Count 12.9 H 4.3-11.0 10^3/uL Red Blood Count 4.53 3.80-5.11 10^6/uL Hemoglobin 14.6 11.5-16.0 g/dL Hematocrit 43 35-52 % Mean Corpuscular Volume 95 80-99 fL Mean Corpuscular Hemoglobin 32 25-34 pg Mean Corpuscular Hemoglobin Concent 34 32-36 g/dL Red Cell Distribution Width 14.2 10.0-14.5 % Platelet Count 205 130-400 10^3/uL Mean Platelet Volume 11.2 9.0-12.2 fL Immature Granulocyte % (Auto) 0 % Neutrophils (%) (Auto) 79 H 42-75 % Lymphocytes (%) (Auto) 14 12-44 % Monocytes (%) (Auto) 5 0-12 % Eosinophils (%) (Auto) 2 0-10 % Basophils (%) (Auto) 0 0-10 % Neutrophils # (Auto) 10.2 H 1.8-7.8 10^3/uL Lymphocytes # (Auto) 1.8 1.0-4.0 10^3/uL Monocytes # (Auto) 0.6 0.0-1.0 10^3/uL Eosinophils # (Auto) 0.2 0.0-0.3 10^3/uL Basophils # (Auto) 0.1 0.0-0.1 10^3/uL Immature Granulocyte # (Auto) 0.0 0.0-0.1 10^3/uL Sodium Level 137 135-145 MMOL/L Potassium Level 3.9 3.6-5.0 MMOL/L Chloride Level 101 98-107 MMOL/L Carbon Dioxide Level 24 21-32 MMOL/L Anion Gap 12 5-14 MMOL/L Blood Urea Nitrogen 8 7-18 MG/DL Creatinine 0.83 0.60-1.30 MG/DL Estimat Glomerular Filtration Rate 81 BUN/Creatinine Ratio 10 Glucose Level 146 H 70-105 MG/DL Calcium Level 9.6 8.5-10.1 MG/DL Corrected Calcium 9.5 8.5-10.1 MG/DL Total Bilirubin 0.7 0.1-1.0 MG/DL Aspartate Amino Transf (AST/SGOT) 56 H 5-34 U/L Alanine Aminotransferase (ALT/SGPT) 23 0-55 U/L Alkaline Phosphatase 185 H 40-136 U/L Troponin I < 0.028 <0.028 NG/ML Total Protein 7.3 6.4-8.2 GM/DL Albumin 4.1 3.2-4.5 GM/DL Lipase 51 8-78 U/L Urine Color DARK YELLOW Urine Clarity SL CLOUDY Urine pH 5.5 5-9 Urine Specific Cushing >=1.030 1.016-1.022 Urine Protein NEGATIVE NEGATIVE Urine Glucose (UA) NEGATIVE NEGATIVE Urine Ketones NEGATIVE NEGATIVE Urine Nitrite NEGATIVE NEGATIVE Urine Bilirubin NEGATIVE NEGATIVE Urine Urobilinogen 1.0 < = 1.0 MG/DL Urine Leukocyte Esterase TRACE H NEGATIVE Urine RBC (Auto) TRACE-I H NEGATIVE Urine RBC NONE /HPF Urine WBC 5-10 H /HPF Urine Squamous Epithelial Cells 5-10 /HPF Urine Renal Epithelial Cells NONE /HPF Urine Crystals NONE /LPF Urine Bacteria FEW H /HPF Urine Casts NONE /LPF Urine Mucus MODERATE H /LPF Urine Culture Indicated YES My Orders Orders - JERE THRASHER RADIATOR MECHANIC Ua Culture If Indicated (05/10/22 16:34) Cbc With Automated Diff (05/10/22 16:53) Comprehensive Metabolic Panel (05/10/22 16:53) Ekg Tracing (05/10/22 16:53) Troponin I Raghu (05/10/22 16:53) Lipase (05/10/22 16:53) Chest 1 View, Ap/Pa Only (05/10/22 16:53) Fentanyl Inj (Sublimaze Injection) (05/10/22 17:00) Ondansetron Injection (Zofran Injectio (05/10/22 17:00) Urine Culture (05/10/22 16:55) Ct Abdomen/Pelvis W (05/10/22 17:21) Iohexol Injection (Omnipaque 350 Mg/Ml 1 (05/10/22 17:30) Received Contrast (Hold Metformin- Contr (05/10/22 17:30) Sodium Chloride Flush (Catheter Flush Sy (05/10/22 17:30) Ns (Ivpb) (Sodium Chloride 0.9% Ivpb Bag (05/10/22 17:30) Dicyclomine Injection (Bentyl Injection) (05/10/22 18:00) Rx-Mupirocin 2% Oint (Rx-Bactroban) (05/10/22 18:32) Medications Given in ED Current Medications Medications Dose Ordered Sig/Evaristo Route Start Time Stop Time Status Last Admin Dose Admin Dicyclomine HCl 20 mg ONCE PRN IM 05/10/22 18:00 05/10/22 18:03 20 MG Fentanyl Citrate 25 mcg ONCE ONCE IVP 05/10/22 17:00 05/10/22 17:03 DC 05/10/22 17:09 25 MCG Iohexol 100 ml ONCE ONCE IV 05/10/22 17:30 05/10/22 17:32 DC 05/10/22 17:44 80 ML Ondansetron HCl 4 mg ONCE ONCE IVP 05/10/22 17:00 05/10/22 17:04 DC 05/10/22 17:09 4 MG Sodium Chloride 10 ml NEEDED PRN IV 05/10/22 17:30 05/10/22 17:44 10 ML Sodium Chloride 100 ml ONCE ONCE IV 05/10/22 17:30 05/10/22 17:32 DC 05/10/22 17:44 80 ML Vital Signs/I&O 05/10/22 16:35 Temp 35.9 Pulse 70 Resp 19 B/P (MAP) 116/75 (89) Blood Pressure Mean: 89 Departure Impression Primary Impression: Acute cholecystitis Disposition: 01 HOME, SELF-CARE Condition: Improved Departure-Patient Inst. Decision time for Depature: 18:46 Referrals: YOEL PAULSON MD (PCP/Family) Primary Care Physician Patient Instructions: Cholecystectomy, Laparoscopic Surgery Add. Discharge Instructions: Plan: 1. Will plan for surgery with Dr. Méndez on MondayMay 13. 2. Please hold your Plavix until you have had your procedure on Monday. 3. Dr. Méndez's office will contact you regarding your appointment date/time. 4. Avoid fatty foods as this will make your symptoms worse. 5. May take pain medication as directed every 6 hours. 6. Return for any increased pain, fever, nausea, vomiting. All discharge instructions reviewed with patient and/or family. Voiced understanding. Scripts Hydrocodone/Acetaminophen (Hydrocodone-Acetamin 5-325 mg) 5 Mg-325 Mg Tablet 1 TAB PO Q6H PRN for PAIN-MODERATE (5-7), #10 TAB 0 Refills Prov: JERE THRASHER RADIATOR MECHANIC 05/10/22 JERE THRASHER RADIATOR MECHANIC May 10, 2022 17:03
[2022-05-10 17:08] LABS: BASOPHILS # (AUTO) 0.1 10^3/uL (0.0-0.1); BASOPHILS % (AUTO) 0 % (0-10); EOSINOPHILS # (AUTO) 0.2 10^3/uL (0.0-0.3); EOSINOPHILS % (AUTO) 2 % (0-10); HEMATOCRIT 43 % (35-52); HEMOGLOBIN 14.6 g/dL (11.5-16.0); LYMPHOCYTES # (AUTO) 1.8 10^3/uL (1.0-4.0); LYMPHOCYTES % (AUTO) 14 % (12-44); MEAN CORPUSCULAR HEMOGLOBIN 32 pg (25-34); MEAN CORPUSCULAR HGB CONC 34 g/dL (32-36); MEAN CORPUSCULAR VOLUME 95 fL (80-99); MEAN PLATELET VOLUME 11.2 fL (9.0-12.2); MONOCYTES # (AUTO) 0.6 10^3/uL (0.0-1.0); MONOCYTES % (AUTO) 5 % (0-12); NEUTROPHILS # (AUTO) 10.2 10^3/uL (1.8-7.8); NEUTROPHILS % (AUTO) 79 % (42-75); PLATELET COUNT 205 10^3/uL (130-400); WHITE BLOOD COUNT 12.9 10^3/uL (4.3-11.0)
[2022-05-10 17:08] LABS: BILIRUBIN,URINE NEGATIVE (NEGATIVE); CLARITY,URINE SL CLOUDY; COLOR,URINE DARK YELLOW; GLUCOSE, URINE (UA) NEGATIVE (NEGATIVE); KETONES,URINE NEGATIVE (NEGATIVE); LEUKOCYTE ESTERASE ,URINE TRACE (NEGATIVE); NITRITE,URINE NEGATIVE (NEGATIVE); PH,URINE 5.5 (5-9); PROTEIN,URINE NEGATIVE (NEGATIVE)
[2022-05-10 17:11] LABS: ALBUMIN 4.1 GM/DL (3.2-4.5); CHLORIDE 101 MMOL/L (98-107); POTASSIUM 3.9 MMOL/L (3.6-5.0); SODIUM 137 MMOL/L (135-145)
[2022-05-10 17:13] LABS: CALCIUM 9.6 MG/DL (8.5-10.1)
[2022-05-10 17:14] LABS: GLUCOSE 146 MG/DL (70-105); TOTAL PROTEIN 7.3 GM/DL (6.4-8.2)
[2022-05-10 17:15] LABS: CARBON DIOXIDE 24 MMOL/L (21-32)
[2022-05-10 17:16] LABS: BILIRUBIN,TOTAL 0.7 MG/DL (0.1-1.0)
[2022-05-10 17:17] LABS: ALKALINE PHOSPHATASE 185 U/L (40-136); CREATININE SERUM 0.83 MG/DL (0.60-1.30); GFR ESTIMATED 81
[2022-05-10 17:17] LABS: BACTERIA,URINE FEW /HPF
[2022-05-10 17:18] LABS: BUN/CREATININE RATIO 10
[2022-05-10 17:20] LABS: ALANINE AMINOTRANSFERASE 23 U/L (0-55)
[2022-05-10 17:21] LABS: LIPASE 51 U/L (8-78)
--- NOTE | 2022-05-10 17:21 | Diagnostic Imaging Report ---
INDICATION: Upper abdominal pain. EXAMINATION: Chest, 05/10/2022. COMPARISON: 07/28/2020. FINDINGS: The cardiomediastinal silhouette is unremarkable. The pulmonary vasculature is within normal limits. The lungs and pleural spaces are clear. IMPRESSION: No evidence of an acute cardiopulmonary process. Dictated by: Dictated on workstation # [id number]
[2022-05-10] MEDS ORDERED: NS 100 ML (IVPB) BAG IV ONE (17:30)
[2022-05-10] MEDS ORDERED: IOHEXOL 350 MG/ML 100 ML (OMNIPAQUE 350) VIAL IV ONE (17:30)
[2022-05-10] MEDS ORDERED: CATHETER FLUSH 10 ML SYR IV PRN (17:30)
[2022-05-10] MEDS ORDERED: HOLD METFORMIN - RECEIVED CONTRAST 20 ML VIAL IV SCH (17:30)
--- NOTE | 2022-05-10 17:59 | Diagnostic Imaging Report ---
EXAMINATION: CT abdomen and pelvis with contrast, 05/10/2022. TECHNIQUE: Multiple contiguous axial images were obtained through the abdomen and pelvis after administration of intravenous contrast. Auto Exposure Controls were utilized during the CT exam to meet ALARA standards for radiation dose reduction. All CT scans use one or more of the following dose optimizing techniques: Automated exposure control, MA and/or KvP adjustment based on patient size and exam type or iterative reconstruction. INDICATION: Abdominal pain and back pain since this afternoon. Vomiting as well. COMPARISONS: None. FINDINGS: The visualized lung bases are unremarkable. There is mild periportal edema versus mild intrahepatic biliary dilatation, felt to be more likely given prominence of the common duct which measures 1.2 cm in thickness. There is pericholecystic fluid, and findings are suspicious for acute cholecystitis with choledocholithiasis not excluded on this examination. The spleen and adrenal glands are normal. Pancreas is unremarkable. Cystic changes in both kidneys are somewhat small for characterization. There is a nonobstructive stone in the left kidney. There is diffuse atherosclerotic disease with a stent in the left common iliac artery. The appendix is normal. Loops of bowel are unremarkable. There is no ascites or free air. The osseous structures are intact. IMPRESSION: 1. Pericholecystic fluid with dilated common duct and likely intrahepatic biliary dilatation. Right upper quadrant sonography recommended as acute cholecystitis is suspected with choledocholithiasis not excluded on this examination. Otherwise, incidental findings as above. Dictated by: Dictated on workstation # [id number]
[2022-05-10] MEDS ORDERED: DICYCLOMINE 10 MG/ML (BENTYL) 2 ML AMP IM PRN (18:00)
[2022-05-10] MEDS ORDERED: RX-MUPIROCIN (BACTROBAN) 2% OINT 22 GM TUBE TOP STA (18:32)
[2022-05-10] MEDS ORDERED: ACHD5005 PO (19:00)
[2022-05-10 19:12] VITALS: BP 122/67
--- NOTE | 2022-05-10 19:15 | Consultation - Surgery ---
MAURILIO NUNN 05/10/22 1915: History of Present Illness History of Present Illness Patient Consulted On(honorio/time) 05/10/22 19:09 Date Seen by Provider: May 10, 2022 Time Seen by Provider: 19:09 History of Present Illness Consult requested by ED for possibly cholecystitis. Pt states for x 1 month she has had epigastric pain, nausea and vomiting. States she saw her PCP about this pain and had a RUQ US revealing sludge. Her PCP scheduled a HIDA scan for 05/23/22. Pt states today around 2 pm she developed significant epigastric pain that radiated to her back, with nausea and vomiting. States normally she gets the pain after eating and it remains constant until she vomits, which then alleviates the pain. Although, after vomiting today her pain did not go away. She denies fever, chills, diarrhea, hematochezia, chest pain, or any other complaints. Notes she has COPD and being short of breath is usual for her. She has had one , hysterectomy and heart surgery at 2 YO. Allergies and Home Medications Allergies Coded Allergies: No Known Drug Allergies (Unverified , 05/28/19) Patient Home Medication List Acetaminophen (Tylenol Extra Strength) 500 Mg Tablet, 1,000-1,500 MG PO Q8H PRN for PAIN-MILD (1-4), (Reported) Entered as Reported by: YUE SAVAGE on 09/18/19 1422 Albuterol Sulfate (Proair Hfa) 1 Puff Puff, 2 PUFF IH Q4H PRN for WHEEZING, (Reported) Entered as Reported by: YUE SAVAGE on 09/18/19 0840 Aspirin (Aspirin EC) 81 Mg Tablet.dr, 81 MG PO DAILY Prescribed by: JAS CAMACHO on 09/21/19 1038 Atorvastatin Calcium (Atorvastatin Calcium) 80 Mg Tablet, 80 MG PO HS Prescribed by: JAS CAMACHO on 09/21/19 1038 Clopidogrel Bisulfate (Clopidogrel) 75 Mg Tablet, 75 MG PO DAILY Prescribed by: JAS CAMACHO on 09/21/19 1038 Diltiazem HCl (Cardizem Cd) 120 Mg Cap.er.24h, 120 MG PO DAILY Prescribed by: ERNESTINE JOSEPH on 07/28/20 2133 Hydrocodone/Acetaminophen (Hydrocodone-Acetamin 5-325 mg) 5 Mg-325 Mg Tablet, 1 TAB PO Q6H PRN for PAIN-MODERATE (5-7) Prescribed by: JERE THRASHER on 05/10/22 1901 Lisinopril (Lisinopril) 5 Mg Tablet, 5 MG PO DAILY Prescribed by: JAS CAMACHO on 09/21/19 1038 Metoprolol Succinate (Metoprolol Succinate) 50 Mg Tab.er.24h, 50 MG PO DAILY Prescribed by: SOHAN CHAVEZ on 07/23/20 1030 Pantoprazole Sodium (Protonix) 40 Mg Granpkt.dr, 40 MG PO DAILY Prescribed by: JAS CAMACHO on 09/21/19 1038 Quetiapine Fumarate (Seroquel) 100 Mg Tablet, 100 MG PO 1900, (Reported) Entered as Reported by: YUE SAVAGE on 09/18/19 0840 Past Szojrzm-Vsgdkp-Nqbrkt Hx Patient Social History Smoking Status: Current Everyday Smoker (1 ppd ) Type Used: Cigarettes 2nd Hand Smoke Exposure: Yes Recent Hopitalizations: No Alcohol Use?: No Have you traveled recently?: No Immunizations Up To Date Tetanus Booster (TDap): More than 5yrs Seasonal Allergies Seasonal Allergies: No Surgeries History of Surgeries: Yes (removed an extra HEART valve at age 2, NECK) Surgeries: Section, Hysterectomy, Tubal Ligation Respiratory History of Respiratory Disorde: Yes Respiratory Disorders: COPD, Emphysema Cardiovascular History of Cardiac Disorders: Yes Cardiac Disorders: Coronary Artery Disease, High Cholesterol, Hypertension, Irregular Heartbeat, Palpitations Neurological History of Neurological Disord: No Reproductive System Sexually Transmitted Disease: No HIV/AIDS: No Genitourinary History of Genitourinary Disor: No Gastrointestinal History of Gastrointestinal Di: Yes Gastrointestinal Disorders: Hiatal Hernia Musculoskeletal History of Musculoskeletal Dis: Yes Musculoskeletal Disorders: Chronic Back Pain Endocrine History of Endocrine Disorders: No HEENT History of HEENT Disorders: Yes Loss of Vision: Denies Hearing Impairment: Denies Cancer History of Cancer: No Psychosocial History of Psychiatric Problem: Yes Behavioral Health Disorders: Depression Integumentary History of Skin or Integumenta: Yes Skin/Integumentary Disorders: Eczema Blood Transfusions History of Blood Disorders: No Adverse Reaction to a Blood Tr: No Family Medical History Significant Family History: Cancer (mother - melanoma ( at 54)), CVA, Hyper tension, Lung Disease Review of Systems-General Constitutional: No diaphoresis, No fever EENTM: No blurred vision Respiratory: No cough; short of breath (chronic, secondary to COPD) Gastrointestinal: abdominal pain (epigastric pain ); No diarrhea, No hematemesis; nausea, vomiting Genitourinary: No dysuria Physical Exam-General Problems Physical Exam Vital Signs Vital Signs - First Documented 05/10/22 16:35 Temp 35.9 Pulse 70 Resp 19 B/P (MAP) 116/75 (89) Capillary Refill : Less Than 3 Seconds General Appearance: WD/WN, no apparent distress Eyes: Bilateral Eye PERRL, Bilateral Eye EOMI HEENT: PERRL/EOMI, pharynx normal Neck: non-tender, supple Respiratory: no respiratory distress, no accessory muscle use, wheezing (expiratory wheezing ) Cardiovascular: regular rate, rhythm, no gallop, no murmur Peripheral Pulses: 2+ Radial Pulses (R), 2+ Radial Pulses (L) Gastrointestinal: normal bowel sounds, soft; No distended, No guarding; tenderness (epigastric and RUQ tenderness to palpation ) Back: no CVA tenderness Extremities: no pedal edema, no calf tenderness Neurologic/Psychiatric: alert, normal mood/affect, oriented x 3 Skin: normal color, warm/dry Lymphatic: no adenopathy (of supraclavicular or axillary LNs) Data Review Labs Laboratory Tests 05/10/22 16:37: White Blood Count 12.9H, Red Blood Count 4.53, Hemoglobin 14.6, Hematocrit 43, Mean Corpuscular Volume 95, Mean Corpuscular Hemoglobin 32, Mean Corpuscular Hemoglobin Concent 34, Red Cell Distribution Width 14.2, Platelet Count 205, Mean Platelet Volume 11.2, Immature Granulocyte % (Auto) 0, Neutrophils (%) (Auto) 79H, Lymphocytes (%) (Auto) 14, Monocytes (%) (Auto) 5, Eosinophils (%) (Auto) 2, Basophils (%) (Auto) 0, Neutrophils # (Auto) 10.2H, Lymphocytes # (Auto) 1.8, Monocytes # (Auto) 0.6, Eosinophils # (Auto) 0.2, Basophils # (Auto) 0.1, Immature Granulocyte # (Auto) 0.0, Sodium Level 137, Potassium Level 3.9, Chloride Level 101, Carbon Dioxide Level 24, Anion Gap 12, Blood Urea Nitrogen 8, Creatinine 0.83, Estimat Glomerular Filtration Rate 81, BUN/Creatinine Ratio 10, Glucose Level 146H, Calcium Level 9.6, Corrected Calcium 9.5, Total Bilirubin 0.7, Aspartate Amino Transf (AST/SGOT) 56H, Alanine Aminotransferase (ALT/SGPT) 23, Alkaline Phosphatase 185H, Troponin I < 0.028, Total Protein 7.3, Albumin 4.1, Lipase 51 05/10/22 16:55: Urine Color DARK YELLOW, Urine Clarity SL CLOUDY, Urine pH 5.5, Urine Specific [place] >=1.030, Urine Protein NEGATIVE, Urine Glucose (UA) NEGATIVE, Urine Ketones NEGATIVE, Urine Nitrite NEGATIVE, Urine Bilirubin NEGATIVE, Urine Urobilinogen 1.0, Urine Leukocyte Esterase TRACEH, Urine RBC (Auto) TRACE-IH, Urine RBC NONE, Urine WBC 5-10H, Urine Squamous Epithelial Cells 5-10, Urine Renal Epithelial Cells NONE, Urine Crystals NONE, Urine Bacteria FEWH, Urine Casts NONE, Urine Mucus MODERATEH, Urine Culture Indicated YES Assessment/Plan Assessment/Plan Assessment/Plan Cholecystitis Chronic anticoagulation - hold plavix until surgery Discussed surgical options with patient. She is hemodynamically stable and pain under control. Plan for outpatient cholecystectomy on 05/13/22, discussed risk benefits and all other indicated procedures. Hold plavix until after surgery. Discussed reasons to return to ED including increased pain, n/v, fever. Pt is agreeable with plan at this time. YOSELYN ELIZABETH DO 05/10/22 2118: History of Present Illness History of Present Illness Time Seen by Provider: 18:43 History of Present Illness Surgery asked to consult regarding Acute Cholecystitis/Cholelithiasis When I saw pt in the ER she had just received some pain meds and was very comfortable. Pt stated she has been having pain like this at least 2-3 times per month and it seems to be getting worse. She has noted it occurs with greasy and fatty foods. At its worst it can be an 8-9 out of 10. She had an US at outside institution which showed sludge in gallbladder. Allergies and Home Medications Allergies Coded Allergies: No Known Drug Allergies (Unverified , 05/28/19) Patient Home Medication List Home Medication List Reviewed: Yes Acetaminophen (Tylenol Extra Strength) 500 Mg Tablet, 1,000-1,500 MG PO Q8H PRN for PAIN-MILD (1-4), (Reported) Entered as Reported by: YUE SAVAGE on 09/18/19 1422 Albuterol Sulfate (Proair Hfa) 1 Puff Puff, 2 PUFF IH Q4H PRN for WHEEZING, (Reported) Entered as Reported by: YUE SAVAGE on 09/18/19 0840 Aspirin (Aspirin EC) 81 Mg Tablet., 81 MG PO DAILY Prescribed by: JAS CAMACHO on 09/21/19 1038 Atorvastatin Calcium (Atorvastatin Calcium) 80 Mg Tablet, 80 MG PO HS Prescribed by: JAS CAMACHO on 09/21/19 1038 Clopidogrel Bisulfate (Clopidogrel) 75 Mg Tablet, 75 MG PO DAILY Prescribed by: JAS CAMACHO on 09/21/19 1038 Diltiazem HCl (Cardizem Cd) 120 Mg Cap.er.24h, 120 MG PO DAILY Prescribed by: ERNESTINE JOSEPH on 07/28/20 2136 Hydrocodone/Acetaminophen (Hydrocodone-Acetamin 5-325 mg) 5 Mg-325 Mg Tablet, 1 TAB PO Q6H PRN for PAIN-MODERATE (5-7) Prescribed by: JERE THRASHER on 05/10/22 1901 Lisinopril (Lisinopril) 5 Mg Tablet, 5 MG PO DAILY Prescribed by: JAS CAMACHO on 09/21/19 1038 Metoprolol Succinate (Metoprolol Succinate) 50 Mg Tab.er.24h, 50 MG PO DAILY Prescribed by: SOHAN CHAVEZ on 07/23/20 1030 Pantoprazole Sodium (Protonix) 40 Mg , 40 MG PO DAILY Prescribed by: JAS CAMACHO on 09/21/19 1038 Quetiapine Fumarate (Seroquel) 100 Mg Tablet, 100 MG PO 1900, (Reported) Entered as Reported by: YUE SAVAGE on 09/18/19 0840 Past Oisjltb-Eezzin-Angphg Hx Patient Social History Smoking Status: Current Everyday Smoker (1 ppd ) Alcohol Use?: No Surgeries History of Surgeries: Yes Surgeries: Section, Hysterectomy, Tubal Ligation Respiratory History of Respiratory Disorde: Yes Respiratory Disorders: COPD, Emphysema Cardiovascular History of Cardiac Disorders: Yes Cardiac Disorders: Coronary Artery Disease, High Cholesterol, Hypertension Neurological History of Neurological Disord: Yes Neurological Disorders: Headaches /Migraines Reproductive System : No Genitourinary History of Genitourinary Disor: No Gastrointestinal History of Gastrointestinal Di: Yes Gastrointestinal Disorders: Hiatal Hernia, Gall Bladder Disease Musculoskeletal History of Musculoskeletal Dis: Yes Musculoskeletal Disorders: Chronic Back Pain Endocrine History of Endocrine Disorders: No HEENT History of HEENT Disorders: No Loss of Vision: Denies Hearing Impairment: Denies Cancer History of Cancer: No Psychosocial History of Psychiatric Problem: Yes Behavioral Health Disorders: Depression Integumentary History of Skin or Integumenta: Yes Skin/Integumentary Disorders: Eczema Family Medical History Significant Family History: Cancer (mother - melanoma ( at 54)), CVA, Hypertension, Lung Disease Review of Systems-General Constitutional: No diaphoresis, No fever EENTM: No blurred vision, No mouth swelling, No epistaxis Respiratory: No cough, No hemoptysis; short of breath (chronic, secondary to COPD) Cardiovascular: No chest pain; Hx of Intervention, palpitations Gastrointestinal: abdominal pain (epigastric pain ); No diarrhea, No hematemesis, No jaundice; nausea, vomiting Genitourinary: No dysuria, No hematuria Musculoskeletal: back pain, joint swelling, muscle stiffness Skin: No change in color, No change in hair/nails Psychiatric/Neurological: Denies Anxiety; Depressed; Denies Seizure, Denies Tingling Physical Exam-General Problems Physical Exam General Appearance: WD/WN, no apparent distress (but just got pain meds) Eyes: Bilateral Eye PERRL, Bilateral Eye EOMI HEENT: pharynx normal; No scleral icterus (R), No scleral icterus (L) Neck: non-tender Respiratory: no respiratory distress, no accessory muscle use, decreased breath sounds, wheezing (expiratory wheezing ) Cardiovascular: regular rate, rhythm, no murmur Peripheral Pulses: 2+ Radial Pulses (R), 2+ Radial Pulses (L) Gastrointestinal: normal bowel sounds, soft; No distended, No guarding; tenderness (epigastric and RUQ tenderness to palpation ), hernia (very small umbilical) Back: no CVA tenderness, no vertebral tenderness Extremities: no pedal edema, no calf tenderness Neurologic/Psychiatric: full stack engineer II-XII nml as tested, alert, normal mood/affect, oriented x 3 Skin: normal color, warm/dry Lymphatic: no adenopathy (neck, axilla or groin) Data Review Radiology Signed Date of Exam:05/10/22 CT ABDOMEN/PELVIS W EXAMINATION: CT abdomen and pelvis with contrast, 05/10/2022. TECHNIQUE: Multiple contiguous axial images were obtained through the abdomen and pelvis after administration of intravenous contrast. Auto Exposure Controls were utilized during the CT exam to meet ALARA standards for radiation dose reduction. All CT scans use one or more of the following dose optimizing techniques: Automated exposure control, MA and/or KvP adjustment based on patient size and exam type or iterative reconstruction. INDICATION: Abdominal pain and back pain since this afternoon. Vomiting as well. COMPARISONS: None. FINDINGS: The visualized lung bases are unremarkable. There is mild periportal edema versus mild intrahepatic biliary dilatation, felt to be more likely given prominence of the common duct which measures 1.2 cm in thickness. There is pericholecystic fluid, and findings are suspicious for acute cholecystitis with choledocholithiasis not excluded on this examination. The spleen and adrenal glands are normal. Pancreas is unremarkable. Cystic changes in both kidneys are somewhat small for characterization. There is a nonobstructive stone in the left kidney. There is diffuse atherosclerotic disease with a stent in the left common iliac artery. The appendix is normal. Loops of bowel are unremarkable. There is no ascites or free air. The osseous structures are intact. IMPRESSION: 1. Pericholecystic fluid with dilated common duct and likely intrahepatic biliary dilatation. Right upper quadrant sonography recommended as acute cholecystitis is suspected with choledocholithiasis not excluded on this examination. Otherwise, incidental findings as above. Dictated by: Dictated on workstation # [id number] Dict: 05/10/22 1751 Trans: 05/10/22 1814 [id number] Interpreted by: NAVJOT GASCA MD Electronically signed by: NAVJOT GASCA MD 05/10/22 1814 Assessment/Plan Assessment/Plan Assessment/Plan Acute Cholecystitis with cholelithiasis Chronic anticoagulation - hold plavix until surgery I went over the CT images myself and can easily see the edema surrounding the gallbladder. She has documented cholelithiasis (sludge) and signs and symptoms that are classic for cholecystitis. I discussed surgical options with patient; which included surgery now, surgery tomorrow or surgery as an outpt. Because she is on Plavix the safest thing to do is wait 2-3 days to do the surgery. She is hemodynamically stable and pain under control. Pt wanted to plan for outpatient cholecystectomy on 05/13/22, discussed risks and benefits not limited to pain, bleeding, infection, scar, damage to bowel or bile duct and need for further procedures. Plan to hold plavix until after surgery. Discussed reasons to return to ED including increased pain, n/v, fever. Pt is agreeable with plan at this time. Supervisory-Addendum Brief Verification & Attestation Participated in pt care: history, MDM, physical Personally performed: exam, history, MDM, supervision of care Care discussed with: Medical Student Procedures: n/a Verification and Attestation of Medical Student E/M Service A medical student performed and documented this service. I then reviewed and verified all information documented by the medical student and made modifications to such information, when appropriate. I personally performed a physical exam, medical decision making and then discussed any differences between the notes and made revisions as necessary to create one note. Yoselyn Elizabeth , 05/10/22 , 21:22 MAURILIO NUNN May 10, 2022 19:15 YOSELYN ELIZABETH DO May 10, 2022 21:18
== END 2022-05-10 19:10 | disposition home or self-care (01) ==
LOC: EDUNIT# 16:24 → ER 16:26
DX: K81.0 Acute cholecystitis (principal); F17.200 Nicotine dependence, unspecified, uncomplicated
CPT/HCPCS: 36415; 71045; 74177; 80053; 81000; 83690; 84484; 85025; 87088; 93005

== ENCOUNTER 2022-05-12 05:49 | Outpatient (CLI) | payer MEDICARE, MEDICAID ==
[~2022-05-12] VITALS: Ht 162.6 cm; Wt 90.0 kg
[~2022-05-12 05:49] MED LIST changes: +ACHD5005 PO
[2022-05-12] MEDS ORDERED: RISA150S2 SQ (12:04)
== END 2022-05-12 12:21 | disposition home or self-care (01) ==
LOC: PREOP 05:49
PROVIDERS: ATTEND Surgery
DX: Z01.818 Encounter for other preprocedural examination (principal)

== ENCOUNTER 2022-05-13 10:55 | Day surgery (SDC) | payer MEDICARE, MEDICAID ==
[~2022-05-13] VITALS: Ht 162.6 cm; Wt 90.0 kg
[2022-05-13] VITALS (12 sets, daily range): BP systolic 129–151; BP diastolic 50–79
[~2022-05-13 10:55] MED LIST changes: +RISA150S2 SQ
[2022-05-13] MEDS ORDERED: ceFAZolin 2 GM IV Premixed 50 ML ONE (11:24)
[2022-05-13] MEDS: LACTATED RINGERS 1,000 ML IV PRN ×2 (11:33→13:10)
--- NOTE | 2022-05-13 11:36 | Progress Note-Pre Operative ---
Pre-Operative Progress Note Date of Available H&P: May 10, 2022 Date H&P Reviewed: May 13, 2022 Time H&P Reviewed: 11:33 History & Physical: H&P Reviewed, Patient Examed, No changes noted Pre-Operative Diagnosis: Cholelithiasis/Cholecystitis YOSELYN ELIZABETH DO May 13, 2022 11:36
[2022-05-13] MEDS ORDERED: LIDOCAINE/EPI 2% 1:200,00 (XYLOCAINE) 20 ML VIAL ONE (11:48)
[2022-05-13] MEDS ORDERED: GLYCOPYRROLATE 0.2 MG/ML (ROBINUL) 2 ML VIAL ONE (12:02)
[2022-05-13] MEDS ORDERED: ONDANSETRON 4 MG/2 ML (SDV) Z0FRAN ONE (12:02)
[2022-05-13] MEDS ORDERED: ROCURONIUM 50 MG/5 ML (ZEMURON) VIAL IV ONE (12:02)
[2022-05-13] MEDS ORDERED: LIDOCAINE PF 1% 5 ML (XYLOCAINE) AMP ONE (12:02)
[2022-05-13] MEDS ORDERED: proPOfol 200 MG/20 ML (DIPRIVAN) VIAL IV ONE (12:02)
[2022-05-13] MEDS ORDERED: fentaNYL INJ 100 MCG/2 ML AMP ONE (12:02)
[2022-05-13] MEDS ORDERED: MIDAZOLAM 2 MG/2 ML (VERSED) VIAL ONE (12:02)
[2022-05-13] MEDS ORDERED: NEOSTIGMINE (BLOXIVERZ ) 1 MG/1ML 10 ML VIAL ONE (12:02)
[2022-05-13] MEDS ORDERED: HYDROmorphone 2 MG/ML VIAL (DILAUDID) ONE (13:10)
[2022-05-13] MEDS ORDERED: SUGAMMADEX 500 MG/5 ML VIAL (BRIDION) IV ONE (13:28)
--- NOTE | 2022-05-13 13:33 | Progress Note-Post Operative ---
Post-Operative Progess Note Surgeon (s)/Inspector Water Pollution Control (s) Surgeon YOSELYN ELIZABETH DO Inspector Water Pollution Control: Balaji Pre-Operative Diagnosis Cholelithiasis/Cholecystitis Post-Operative Diagnosis Acute on chronic with adhesions Procedure & Operative Findings Date of Procedure 05/13/22 Procedure Performed/Findings PROCEDURE: Laparoscopic cholecystectomy with intraoperative cholangiogram. COMPLICATIONS: None. PROCEDURE: The patient was taken to the operating suite and was prepped and draped in sterile fashion. A surgical pause was performed. Just superior to the umbilicus, a 12 mm incision was made. Dissection was taken down to the fascia, which was then scored and grasped with a Jeannette and the abdomen was then entered. A 0 Vicryl suture was placed in a qaeiyj-[id number] fashion and a Solis trocar was placed and secured. Pneumoperitoneum was achieved. A 5mm trochar [address] in the subxyphoid and 2 in the right upper quadrant. The gallbladder was slightly green and appeared edematous with adhesions to it. This indicates previous and current karen- cystitis. The gallbladder was then grasped at the fundus and elevated in the superior direction. The second instrument grasped down at Zapata's pouch and pulled in the infero-lateral direction. The cystic duct and cystic artery were then dissected out. Clip was placed on the distal portion of the cystic duct which was then partially transected. An arrow catheter was inserted into the duct. The cholangiogram was then performed. No filing defects and contrast made its way into the duodenum. Catheter removed. Clips were placed on proximal portion of the cystic duct and then the duct was then transected. Clips were placed along the proximal and distal portion of the cystic artery which was then transected. Hook cautery was used to dissect the gallbladder from the gallbladder fossa achieving hemostasis; there was edema surrounding the gallbladder. The gallbladder was placed in an Endobag and removed through the 12 mm trocar site. The abdomen was then reinspected. Copious amounts of irrigation were used to irrigate the abdomen and there were no signs of active bleeding. Hemostasis had been achieved. The 12 mm fascial defect was then closed with 0 Vicryl suture that had been placed in a [id number] fashion. The abdomen was then desufflated, the trocars were removed. The abdomen was then washed and dried. The skin was then closed using 4-0 Monocryl in a subcuticular fashion. The abdomen was washed and dried and Skin Affix was placed over incisions. Patient tolerated the procedure well without any complications and was taken to the recovery room in stable condition. Dr. Caprio assisted on this case helping to make incisions, close incisions, identify anatomy and hold anatomy out of the way. Anesthesia Type GET Estimated Blood Loss Estimated blood loss (mL): scant Specimens/Packing Specimens Removed GB and contents YOSELYN ELIZABETH DO May 13, 2022 13:33
--- NOTE | 2022-05-13 13:35 | Discharge Inst-Surgical ---
Discharge Inst-Surgical Depart Medication/Instructions New, Converted or Re-Newed RX: Other (use meds given in ER for pain) Patient Instructions Follow up Appt: Make appointment for 1 week. [phone] Instructions: No lifting greater than 20 pounds. No strenuous activity. May shower in 24 hours, no tub bath or soaking. Use incentive spirometer at home as directed. No Smoking Skin/Wound Care: May remove bandages in am. You need to leave the Dermabond on incision it will fall off on it's own. Symptoms to Report: Appetite Changes, Extremity Discoloration, Numbness/Tingling, Swelling Increased, Bleeding Excessive, Eyesight Changes, Pain Increased, Urine Color Change, Constipation(Persistent), Fever over 101 degree F, Pain/Pressure in ches t, Urinating Difficulty, Cough Up/Vomit Blood, Heart Beat Irreg/Pounding, Pain/Pressure in jaw, Cramps in feet or legs, Lightheadedness, Pain/Pressure in shoulder, Diarrhea(Persistent), Memory Changes Suddenly, Questions/Concerns, Weight gain consecutive days, Dizziness/Fainting, Nausea/Vomiting, Shortness of Breath, Weight gain over 2 pounds If questions or concerns contact your physician Or seek help at emergency department. Activity Activity as Tolerated: Yes Activity Instructions: Avoid Stress to Incision Driving Instructions: No Driving/Refer to Diet Discharge Diet: Avoid Fatty Foods, Low Fat/Low Cholesterol Diet for 24 Hours: No [place] Foods Diet After 24 Hours: Clear Liquid if Nauseous If Any Problems/Questions/Issu: Contact Your Physician, Go to Emergency Room Skin/Wound Care Infection Signs and Symptoms: Increased Redness, Foul Odor of Wound, Increased Drainage, Skin Itchy or Has a Rash, Increased Swelling, Temperature Above 101 F Wound Care Comment: heating pad to shoulder or neck tonight for pain Bathing Instructions: Shower Stitches/Nancy/Dermabond Dis: Dermabond Ice Pack: Ice On and Off Site YOSELYN ELIZABETH DO May 13, 2022 13:35
[2022-05-13] MEDS ORDERED: SEVOFLURANE (ULTANE) 15 ML INHAL SOLN ONE (13:43)
[2022-05-13] MEDS ORDERED: HYDROmorphone 2 MG/ML VIAL (DILAUDID) IV ONE (14:00)
[2022-05-13] MEDS ORDERED: ONDANSETRON 4 MG/2 ML (SDV) Z0FRAN IVP PRN (14:00)
--- NOTE | 2022-05-13 14:48 | Anesthesia-General Post-Op ---
General Patient Condition Mental Status/LOC: Same as Preop Cardiovascular: Satisfactory Nausea/Vomiting: Absent Respiratory: Satisfactory Pain: Controlled Complications: Absent Post Op Complications Complications None Follow Up Care/Instructions Patient Instructions None needed. Anesthesia/Patient Condition Patient Condition Patient is doing well, no complaints, stable vital signs, no apparent adverse anesthesia problems. No complications reported per nursing. D/[place] home per [facility] [place] Criteria: Yes BRIGITTE CADET CRNA May 13, 2022 14:48
--- NOTE | 2022-05-13 18:48 | Diagnostic Imaging Report ---
INDICATION: Abdominal pain. Laparoscopic cholecystectomy. COMPARISON: CT dated 05/10/2022 Total fluoroscopy time: 11.9 seconds Total number of fluoroscopic images saved: 61 FINDINGS: Multiple intraoperative image intensifier and digital subtraction views of the right upper abdominal quadrant were obtained during intraoperative cholangiogram. Images provided show contrast filling the intra and extrahepatic biliary ducts. There is normal emptying of contrast into the small bowel. No large intraluminal filling defects are seen. Please note, interpreting radiologist was not present during the procedure. IMPRESSION: 1. Fluoroscopic guidance provided intraoperatively as above. Dictated by: Dictated on workstation # [id number]
== END 2022-05-13 16:02 | disposition home or self-care (01) ==
LOC: SDC 10:55
PROVIDERS: ATTEND Surgery
DX: K81.0 Acute cholecystitis (principal); K81.1 Chronic cholecystitis; F17.210 Nicotine dependence, cigarettes, uncomplicated; J44.9 Chronic obstructive pulmonary disease, unspecified; Z99.81 Dependence on supplemental oxygen
CPT/HCPCS: 76000; 87081

== ENCOUNTER → 2022-09-15 | Outpatient (CLI) | payer MEDICARE, MEDICAID ==
[~2022-09-15] MED LIST changes: +ALBU8.5H6 IH; -RT-ALBUINH IH; +RT-ALBUTEROL SULF 2.5 MG/3 ML PRE-MIX VIAL INH ONE
== END ==
LOC: RT 12:30
PROVIDERS: ATTEND Nurse Practitioner Family
DX: J44.9 Chronic obstructive pulmonary disease, unspecified (principal)
CPT/HCPCS: 94060; 94621; 94726; 94729